=== PATIENT | female | born 1950 | race Caucasian/White ===

== ENCOUNTER 2022-04-09 11:42 | Observation (INO) | payer MEDICARE, OTHER ==
[~2022-04-09] VITALS: Ht 152.4 cm; Wt 75.2 kg
--- NOTE | 2022-04-09 11:54 | ED General ---
General Stated Complaint: COUGH; SOB History of Present Illness Date Seen by Provider: Apr 09, 2022 Time Seen by Provider: 11:49 Initial Comments 72-year-old female presents with some generalized weakness, shortness of breath, malaise, mild cough. No fevers chills nausea or vomiting. Symptoms started approximately 5 days ago when she went to [email or web address]. Patient denies chest pain, leg pain or any other systemic complaints. Patient went to urgent care where she was tested negative for COVID and influenza and sent over here for further evaluation. Allergies and Home Medications Allergies Coded Allergies: No Known Drug Allergies (Unverified , 04/09/22) Patient Home Medication List Home Medication List Reviewed: Yes Review of Systems Review of Systems Constitutional: No chills, No fever; malaise, weakness EENTM: no symptoms reported Respiratory: cough (Mild occasion), short of breath Cardiovascular: No chest pain, No palpitations Gastrointestinal: No abdominal pain, No diarrhea, No nausea, No vomiting Genitourinary: no symptoms reported Musculoskeletal: no symptoms reported Skin: no symptoms reported Psychiatric/Neurological: Weakness Physical Exam Vital Signs Vital Signs - First Documented 04/09/22 12:00 Temp 36.5 Pulse 125 Resp 25 B/P (MAP) 121/90 (100) O2 Delivery Room Air Capillary Refill : Height, Weight, BMI Height: '" Weight: lbs. oz. 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 Norm as Tested Skin: Normal Color, Warm/Dry Progress/Results/Core Measures Suspected Sepsis SIRS Temperature: Pulse: Respiratory Rate: Laboratory Tests 04/09/22 11:58: White Blood Count 9.8 Blood Pressure / Mean: Laboratory Tests 04/09/22 11:58: Creatinine 1.11, Platelet Count 235, Total Bilirubin 1.8H Results/Orders Lab Results Laboratory Tests Test 04/09/22 11:58 Range/Units White Blood Count 9.8 4.3-11.0 10^3/uL Red Blood Count 5.24 H 3.80-5.11 10^6/uL Hemoglobin 15.3 11.5-16.0 g/dL Hematocrit 46 35-52 % Mean Corpuscular Volume 87 80-99 fL Mean Corpuscular Hemoglobin 29 25-34 pg Mean Corpuscular Hemoglobin Concent 34 32-36 g/dL Red Cell Distribution Width 13.3 10.0-14.5 % Platelet Count 235 130-400 10^3/uL Mean Platelet Volume 11.0 9.0-12.2 fL Immature Granulocyte % (Auto) 0 % Neutrophils (%) (Auto) 73 42-75 % Lymphocytes (%) (Auto) 18 12-44 % Monocytes (%) (Auto) 6 0-12 % Eosinophils (%) (Auto) 1 0-10 % Basophils (%) (Auto) 1 0-10 % Neutrophils # (Auto) 7.2 1.8-7.8 10^3/uL Lymphocytes # (Auto) 1.8 1.0-4.0 10^3/uL Monocytes # (Auto) 0.6 0.0-1.0 10^3/uL Eosinophils # (Auto) 0.1 0.0-0.3 10^3/uL Basophils # (Auto) 0.1 0.0-0.1 10^3/uL Immature Granulocyte # (Auto) 0.0 0.0-0.1 10^3/uL D-Dimer 2.48 H 0.00-0.49 UG/ML Sodium Level 142 135-145 MMOL/L Potassium Level 4.0 3.6-5.0 MMOL/L Chloride Level 104 98-107 MMOL/L Carbon Dioxide Level 20 L 21-32 MMOL/L Anion Gap 18 H 5-14 MMOL/L Blood Urea Nitrogen 28 H 7-18 MG/DL Creatinine 1.11 0.60-1.30 MG/DL Estimat Glomerular Filtration Rate 52 BUN/Creatinine Ratio 25 Glucose Level 131 H 70-105 MG/DL Calcium Level 9.2 8.5-10.1 MG/DL Corrected Calcium 9.0 8.5-10.1 MG/DL Magnesium Level 2.0 1.6-2.4 MG/DL Total Bilirubin 1.8 H 0.1-1.0 MG/DL Aspartate Amino Transf (AST/SGOT) 24 5-34 U/L Alanine Aminotransferase (ALT/SGPT) 22 0-55 U/L Alkaline Phosphatase 68 40-136 U/L Troponin I < 0.30 <0.30 NG/ML C-Reactive Protein 1.05 H <0.50 MG/DL Pro-B-Type Natriuretic Peptide 80118.0 H <125.0 PG/ML Total Protein 7.3 6.4-8.2 GM/DL Albumin 4.3 3.2-4.5 GM/DL My Orders Orders - MUHAMMAD,JULIEN L DO Cbc With Automated Diff (04/09/22 11:54) Comprehensive Metabolic Panel (04/09/22 11:54) Magnesium (04/09/22 11:54) Procalcitonin (Pct) (04/09/22 11:54) Probnp Fs (04/09/22 11:54) Crp Fs (04/09/22 11:54) Troponin I Fs (04/09/22 11:54) Ed Iv/Invasive Line Start (04/09/22 11:54) Ekg Tracing (04/09/22 11:54) Monitor-Rhythm Ecg Trace Only (04/09/22 11:54) Fibrin Degradation Products (04/09/22 11:54) Chest Pa/Lat (2 View) (04/09/22 11:54) Lactated Ringers (Lr 1000 Ml Iv Solution (04/09/22 11:59) Ct Angio Chest W (04/09/22 12:50) Iohexol Injection (Omnipaque 350 Mg/Ml 1 (04/09/22 13:00) Received Contrast (Hold Metformin- Contr (04/09/22 13:00) Sodium Chloride Flush (Catheter Flush Sy (04/09/22 13:00) Ns (Ivpb) (Sodium Chloride 0.9% Ivpb Bag (04/09/22 13:00) Furosemide Injection (Lasix Injection) (04/10/22 09:00) Furosemide Injection (Lasix Injection) (04/09/22 13:48) Ed Admission (Communication) (04/09/22 13:58) Medications Given in ED Current Medications Medications Dose Ordered Sig/Sera Route Start Time Stop Time Status Last Admin Dose Admin Iohexol 75 ml ONCE ONCE IV 04/09/22 13:00 04/09/22 13:01 DC 04/09/22 13:19 100 ML Sodium Chloride 10 ml NEEDED PRN IV 04/09/22 13:00 04/09/22 13:19 10 ML Sodium Chloride 100 ml ONCE ONCE IV 04/09/22 13:00 04/09/22 13:01 DC 04/09/22 13:19 100 ML Vital Signs/I&O 04/09/22 12:00 Temp 36.5 Pulse 125 Resp 25 B/P (MAP) 121/90 (100) O2 Delivery Room Air Capillary Refill : Progress Note : Progress Note Patient with new onset CHF. She had a negative CTA for pulmonary embolism. Her CT is consistent with pulmonary edema and CHF. She does remain tachycardic despite oxygen treatment. Her O2 saturations were in low 90s and she was mildly tachypneic. We placed on oxygen which her O2 saturations improved to the upper 90s and her respiratory rate remained just mildly tachypneic however she did remain tachycardic. Patient to be admitted for further inpatient evaluation for observation to Dr. Gorman [facility]. She was stable upon transfer via [facility] ECG Initial ECG Impression Date: Apr 09, 2022 Initial ECG Impression Time: 11:59 Initial ECG Rate: 117 Initial ECG Rhythm: S.Tach, PVC Comment sinus tach, occasional pvc, lvh, left axis deviation. no acute changes Diagnostic Imaging Diagonstic Imaging: Xray Plain Films/CT/US/NM/MRI: chest Comments Date of Exam:04/09/22 CHEST PA/LAT (2 VIEW) CLINICAL INDICATION: Patient with cough and cold-like symptoms. EXAM: Chest x-ray PA and lateral views. COMPARISON: None. FINDINGS: Lungs/pleura: There are mild patchy airspace opacities involving both lung bases. There is no pneumothorax. There is no pleural effusion. Mediastinum: Unremarkable. Pulmonary vasculature: There is mild pulmonary vascular congestion. Heart: There is cardiomegaly. Bones/extrathoracic soft tissue: There are hypertrophic spurs involving the thoracic spine. There is left curvature of the lower thoracic spine. IMPRESSION: 1: There is cardiomegaly and pulmonary vascular congestion which could be seen with congestive heart failure. 2: There are mild patchy airspace opacities involving both lung bases which may represent pulmonary congestion, but lung infiltrates may also be considered. Departure Impression Primary Impression: Congestive heart failure Qualified Codes: I50.9 - Heart failure, unspecified Disposition: 30 STILL A PATIENT Condition: Stable Admissions Decision to Admit/Date: Apr 09, 2022 Time/Decision to Admit Time: 13:58 Departure-Patient Inst. Referrals: ROWAN GARCIA MD (PCP) Primary Care Physician JULIEN MUHAMMAD DO Apr 09, 2022 11:54
[2022-04-09] MEDS ORDERED: LACTATED RINGERS 1,000 ML IV STA (11:59)
[2022-04-09 12:08] LABS: BASOPHILS # (AUTO) 0.1 10^3/uL (0.0-0.1); BASOPHILS % (AUTO) 1 % (0-10); EOSINOPHILS # (AUTO) 0.1 10^3/uL (0.0-0.3); EOSINOPHILS % (AUTO) 1 % (0-10); HEMATOCRIT 46 % (35-52); HEMOGLOBIN 15.3 g/dL (11.5-16.0); LYMPHOCYTES # (AUTO) 1.8 10^3/uL (1.0-4.0); LYMPHOCYTES % (AUTO) 18 % (12-44); MEAN CORPUSCULAR HEMOGLOBIN 29 pg (25-34); MEAN CORPUSCULAR HGB CONC 34 g/dL (32-36); MEAN CORPUSCULAR VOLUME 87 fL (80-99); MONOCYTES # (AUTO) 0.6 10^3/uL (0.0-1.0); MONOCYTES % (AUTO) 6 % (0-12); NEUTROPHILS # (AUTO) 7.2 10^3/uL (1.8-7.8); NEUTROPHILS % (AUTO) 73 % (42-75); PLATELET COUNT 235 10^3/uL (130-400); WHITE BLOOD COUNT 9.8 10^3/uL (4.3-11.0)
--- NOTE | 2022-04-09 12:26 | Diagnostic Imaging Report ---
CLINICAL INDICATION: Patient with cough and cold-like symptoms. EXAM: Chest x-ray PA and lateral views. COMPARISON: None. FINDINGS: Lungs/pleura: There are mild patchy airspace opacities involving both lung bases. There is no pneumothorax. There is no pleural effusion. Mediastinum: Unremarkable. Pulmonary vasculature: There is mild pulmonary vascular congestion. Heart: There is cardiomegaly. Bones/extrathoracic soft tissue: There are hypertrophic spurs involving the thoracic spine. There is left curvature of the lower thoracic spine. IMPRESSION: 1: There is cardiomegaly and pulmonary vascular congestion which could be seen with congestive heart failure. 2: There are mild patchy airspace opacities involving both lung bases which may represent pulmonary congestion, but lung infiltrates may also be considered. Dictated by: Dictated on workstation # [id number]
[2022-04-09 12:41] LABS: ALANINE AMINOTRANSFERASE 22 U/L (0-55); ALKALINE PHOSPHATASE 68 U/L (40-136); BILIRUBIN,TOTAL 1.8 MG/DL (0.1-1.0); BUN/CREATININE RATIO 25; CALCIUM 9.2 MG/DL (8.5-10.1); CARBON DIOXIDE 20 MMOL/L (21-32); CHLORIDE 104 MMOL/L (98-107); CREATININE SERUM 1.11 MG/DL (0.60-1.30); GFR ESTIMATED 52; GLUCOSE 131 MG/DL (70-105); SODIUM 142 MMOL/L (135-145)
[2022-04-09 12:42] LABS: ALBUMIN 4.3 GM/DL (3.2-4.5); TOTAL PROTEIN 7.3 GM/DL (6.4-8.2)
[2022-04-09] MEDS ORDERED: HOLD METFORMIN - RECEIVED CONTRAST 20 ML VIAL IV SCH (13:00)
[2022-04-09] MEDS ORDERED: IOHEXOL 350 MG/ML 100 ML (OMNIPAQUE 350) VIAL IV ONE (13:00)
[2022-04-09] MEDS ORDERED: CATHETER FLUSH 10 ML SYR IV PRN (13:00)
[2022-04-09] MEDS ORDERED: NS 100 ML (IVPB) BAG IV ONE (13:00)
--- NOTE | 2022-04-09 13:34 | Diagnostic Imaging Report ---
PROCEDURE: CT angiography of the chest with contrast. TECHNIQUE: Multiple contiguous axial images were obtained through the chest after uneventful bolus administration of intravenous contrast. 3D reconstructed CTA MIP acquisitions were also performed. Auto Exposure Controls were utilized during the CT exam to meet ALARA standards for radiation dose reduction. INDICATION: Dyspnea and cough with elevated D-dimer. FINDINGS: There is good opacification of pulmonary arteries without intraluminal filling defect detected. There is cardiomegaly without enlargement of right atrium. There is mild left and [id number] right pleural effusion. There is diffuse ground-glass density likely representing pulmonary edema throughout the lungs. There is no significant pericardial effusion. Occasional mildly prominent mediastinal lymph nodes are noted. IMPRESSION: Findings are most suggestive of congestive heart failure with pleural fluid, greater on the right. There is no CTA evidence of pulmonary embolism or other definite acute abnormality in the thorax. Dictated by: Dictated on workstation # [id number]
[2022-04-09] MEDS ORDERED: FUROSEMIDE 40 MG/4 ML INJ (LASIX) ONE ×2 (13:48→21:26)
[2022-04-09 15:14] VITALS: BP 141/84
[2022-04-09] MEDS ORDERED: diphenhydrAMINE 50 MG/ML INJ (BENADRYL) IVP PRN (17:00)
[2022-04-09] MEDS ORDERED: ONDANSETRON 4 MG (ZOFRAN) ORAL DISSOLVE TAB PO PRN (17:00)
[2022-04-09] MEDS ORDERED: MELATONIN 3 MG TABLET PO PRN (17:00)
[2022-04-09] MEDS ORDERED: BISACODYL 10 MG SUPP (DULCOLAX) PR PRN (17:00)
[2022-04-09] MEDS ORDERED: morphine INJ 4 MG/ML 1 ML (VIAL/SYRINGE) IV PRN (17:00)
[2022-04-09] MEDS ORDERED: diphenhydrAMINE 25 MG TAB (BENADRYL) PO PRN (17:00)
[2022-04-09] MEDS ORDERED: ALPRAZolam 0.5 MG (XANAX) TAB PO PRN (17:00)
[2022-04-09] MEDS ORDERED: ONDANSETRON 4 MG/2 ML (SDV) Z0FRAN IV PRN (17:00)
[2022-04-09] MEDS ORDERED: polyethylene glycoL POWDER 17 GM (MIRALAX) PACK PO PRN (17:00)
[2022-04-09] MEDS ORDERED: ANTACID SUSP 30 ML UDC (MYLANTA) PO PRN (17:00)
[2022-04-09] MEDS ORDERED: ACETAMINOPHEN 325 MG TABLET PO PRN (17:00)
[2022-04-09] MEDS: ENOXAPARIN 40 MG/0.4 ML (LOVENOX) SYR SC SCH (17:56)
[2022-04-09 19:22] VITALS: BP 121/74
[2022-04-09] MEDS: DOCUSATE SODIUM 100 MG (COLACE) CAP PO SCH (21:00)
[2022-04-09] MEDS: FUROSEMIDE 40 MG/4 ML INJ (LASIX) IVP SCH (21:30)
[2022-04-09 23:03] VITALS: BP 121/90
[2022-04-10] VITALS (7 sets, daily range): BP systolic 97–126; BP diastolic 51–85
[2022-04-10 06:29] LABS: BASOPHILS # (AUTO) 0.1 10^3/uL (0.0-0.1); BASOPHILS % (AUTO) 1 % (0-10); EOSINOPHILS # (AUTO) 0.2 10^3/uL (0.0-0.3); EOSINOPHILS % (AUTO) 2 % (0-10); HEMATOCRIT 44 % (35-52); HEMOGLOBIN 14.3 g/dL (11.5-16.0); LYMPHOCYTES # (AUTO) 2.6 10^3/uL (1.0-4.0); LYMPHOCYTES % (AUTO) 26 % (12-44); MEAN CORPUSCULAR HEMOGLOBIN 29 pg (25-34); MEAN CORPUSCULAR HGB CONC 33 g/dL (32-36); MEAN CORPUSCULAR VOLUME 88 fL (80-99); MEAN PLATELET VOLUME 11.6 fL (9.0-12.2); MONOCYTES # (AUTO) 0.8 10^3/uL (0.0-1.0); MONOCYTES % (AUTO) 8 % (0-12); NEUTROPHILS # (AUTO) 6.2 10^3/uL (1.8-7.8); NEUTROPHILS % (AUTO) 63 % (42-75); PLATELET COUNT 209 10^3/uL (130-400); WHITE BLOOD COUNT 9.9 10^3/uL (4.3-11.0)
[2022-04-10 06:57] LABS: ALBUMIN 3.8 GM/DL (3.2-4.5); BILIRUBIN,TOTAL 1.9 MG/DL (0.1-1.0); CREATININE SERUM 1.05 MG/DL (0.60-1.30); TOTAL PROTEIN 6.8 GM/DL (6.4-8.2)
[2022-04-10] MEDS: FUROSEMIDE 40 MG/4 ML INJ (LASIX) IVP SCH (08:15)
[2022-04-10] MEDS: DOCUSATE SODIUM 100 MG (COLACE) CAP PO SCH ×2 (08:15→20:26)
[2022-04-10] MEDS ORDERED: FUROSEMIDE 40 MG/4 ML INJ (LASIX) IVP SCH ×2 (09:00)
[2022-04-10] MEDS ORDERED: LOVA10TA PO (10:17)
[2022-04-10] MEDS ORDERED: ACET-2267 PO (10:17)
[2022-04-10] MEDS ORDERED: TRAM50TA3 PO (10:17)
[2022-04-10] MEDS ORDERED: CITA40TA13 PO (10:17)
[2022-04-10] MEDS ORDERED: LEVO75TA6 PO (10:17)
[2022-04-10] MEDS ORDERED: OLAN10TA71 PO (10:17)
[2022-04-10] MEDS ORDERED: MELO15TA39 PO (10:17)
[2022-04-10] MEDS: RT-ALBUTEROL/IPRATROPIUM 3 ML (DUONEB) VIAL INH SCH ×2 (10:55→19:00)
--- NOTE | 2022-04-10 12:50 | History & Physical-Hospitalist ---
[facility] 04/10/22 1250: History of Present Illness HPI/Chief Complaint Amber is a 72 year old female who presented to the [place] ER on 04/09 with SOB and generalized weakness for the previous 5 days. She had negative flu and COVID tests at the urgent care on 04/09 before being seen in the ER. Her CT at [place] revealed pulmonary edema and CHF. She remained tachycardic despite oxygen treatment and was transferred to [place] where care was assumed by Dr. Logan. She is accompanied by her son. Today she notes having BRASHER but no resting SOB and she still has an occasional cough productive of clear sputum as well as generalized weakness. She has never had symptoms similar to this before. Pt tried acetaminophen for the discomfort which helped somewhat. Walking exacerbates her discomfort and SOB. She notes her trouble breathing is worse when Lasix treatment "wears off" but is improved once Lasix are restarted. Reports some mild nausea and stomach unease today that improves once she eats lunch. Her last BM was yesterday morning and she has been started on stool softeners. Denies CP, vomiting, diarrhea, fever, chills, abdominal pain, sore throat. [place] BNP was 57510. Echo today showed 25-30% LVEF. Cardiology has been consulted. Source: patient, EMS notes reviewed Exam Limitations: no limitations Date Seen 04/10/22 Time Seen by a Provider: 11:15 Attending Physician Saul Schultz MD PCP Admitting Physician: Braydon Logan DO Attending Physician: Braydon Logan DO Referring Physician Date of Admission Apr 09, 2022 at 16:40 Home Medications & Allergies Home Medications Reviewed patient Home Medication Reconciliation performed by pharmacy medication reconciliations mathematical technician and/or nursing. Patients Allergies have been reviewed. Allergies Allergies Coded Allergies No Known Drug Allergies ([id number]/1/22) Past [id number]-[id number]-Dscamd Hx Patient Social History Tobacco Use?: No Smoking Status: Never a Smoker Use of E-Cig and/or Vaping dev: No Substance use?: No Alcohol Use?: No Pt feels they are or have been: No Immunizations Up To Date Date of Influenza Vaccine: Mar 10, 2022 Current Status Advance Directives: No Communicates: Verbally Primary Language: Ukrainian Preferred Spoken Language: Ukrainian Is interpretation needed?: No Implanted or Applied Medical D: None Past Medical History Surgeries: Orthopedic (bilateral hip replacements) High Cholesterol Arthritis Hypothyroidsim Depression Family Medical History GI Disease (mother-hepatitis), Stroke (father) Review of Systems Constitutional: No chills, No diaphoresis; weakness EENTM: No vision loss, No throat pain Respiratory: cough (occasional), dyspnea on exertion; No hemoptysis; short of breath Cardiovascular: No chest pain, No palpitations Gastrointestinal: No abdominal pain, No diarrhea, No vomiting Genitourinary: No decreased output, No discharge Musculoskeletal: No back pain, No joint pain Skin: No change in color, No change in hair/nails Psychiatric/Neurological: Denies Anxiety; Depressed All Other Systems Reviewed Negative Unless Noted: Yes (Negative excepted noted.) Physical Exam Physical Exam Vital Signs Vital Signs - First Documented 04/09/22 04/09/22 04/09/22 12:00 15:14 23:03 Temp 36.5 Pulse 125 Resp 25 B/P (MAP) 121/90 (100) Pulse Ox 97 O2 Delivery Room Air O2 Flow Rate 3.00 FiO2 21 Capillary Refill : Height, Weight, BMI Height: '" Weight: lbs. oz. kg; 29.62 BMI Method: General Appearance: No Apparent Distress, WD/WN HEENT: PERRL/EOMI, Pharynx Normal, Moist Mucous Membranes Neck: Full Range of Motion, Normal Inspection, Non Tender, Supple Respiratory: Chest Non Tender, Lungs Clear, Normal Breath Sounds, No Accessory Muscle Use, No Respiratory Distress Cardiovascular: Regular Rate, Rhythm, No Gallop, No JVD, No Murmur, Normal Peripheral Pulses Gastrointestinal: Normal Bowel Sounds, Non Tender, Soft Rectal: Deferred Back: Normal Inspection, No CVA Tenderness Extremity: Normal Capillary Refill, Normal Inspection, Normal Range of Motion, Non Tender, No Calf Tenderness Neurologic/Psychiatric: Alert, Oriented x3, No Motor/Sensory Deficits, Normal Mood/Affect, veterinarian II-XII Norm as Tested Skin: Normal Color, Warm/Dry Lymphatic: No Adenopathy Results Results/Procedures Labs Laboratory Tests 04/09/22 11:58 04/10/22 05:27 Patient resulted labs reviewed. Imaging: Reviewed Imaging Report Assessment/Plan Admission Diagnosis Admission Status: Inpatient Order (span 2 midnights) Reason for Inpatient Admission: new onset CHF Assessment and Plan CHF - new onset Reduced LVEF Pulmonary edema HLD Depression Hypothyroid Continue Lasix treatment Nebulizer treatment as needed Will require cardiac catheterization given new onset on CHF with unknown CAD status Cardiology consulted and recommendations appreciated BRAYDON LOGAN DO 04/11/22 0624: Assessment/Plan Admission Diagnosis Assessment: New CHF Hypothyroidism OA Plan: Cardiology consult ECHO Admission Status: Observation Reason for Inpatient Admission: new Supervisory-Addendum Brief Verification & Attestation Participated in pt care: history, MDM, physical Personally performed: exam, history, MDM, supervision of care Care discussed with: Medical Student Procedures: n/a Results interpretation: Verified all documentation Verification and Attestation of Medical Student E/M Service A medical student performed and documented this service in my presence. I reviewed and verified all information documented by the medical student and made modifications to such information, when appropriate. I personally performed the physical exam and medical decision making. Braydon Logan, Apr 11, 2022,06:24 JORDAN DEVINE Apr 10, 2022 12:50 BRAYDON LOGAN DO Apr 11, 2022 06:24
--- NOTE | 2022-04-10 12:57 | Consultation-Cardiology ---
HPI-Cardiology Cardiology Consultation: Date of Consultation 04/10/22 Time Seen by a Provider: 12:15 Date of Admission 04-09-22 Attending Physician Saul Schultz MD Admitting Physician Admitting Physician: Jeniffer Gorman DO Attending Physician: Jeniffer Gorman DO Consulting Physician Bruno Montgomery MD HPI: Chief Complaint: New onset CHF Ms. Avitia is a 72 yr old female admitted to [facility] from the ED with increasing SOB and newly dx CHF. She reports over the course of the last several weeks she has had increasing BRASHER. She feels it started on Wednesday and progressively got worse throughout the week. Her family reports she has had increasing SOB since before . She denies any c/o CP, palpitations, syncope, near syncope or LE swelling. No c/o n/v/d. No c/o fever or chills. Review of Systems-Cardiology Review of Systems Constitutional: No chills, No fever; malaise Eyes: No vision change Ears/Nose/Throat: No epistaxis, No recent hearing loss Respiratory: As described under HPI Cardiovascular: As described under HPI Gastrointestinal: No constipation, No diarrhea, No nausea, No vomiting Genitourinary: No dysuria, No hematuria Musculoskeletal: back pain (chronic) Skin: No rash on exposed areas, No ulcerations on exposed areas Psychiatric/Neurological: depression; No focal weakness, No syncope Hematologic: No bleeding abnormalities GMZ-Cvquhg-Sldduj Hx Patient Social History Smoking Status: Never a Smoker Have you traveled recently?: No Alcohol Use?: No Pt feels they are or have been: No Immunizations Up To Date Date of Influenza Vaccine: Mar 10, 2022 Past Medical History PMH As described under Assessment. Family Medical History Family Medical History: She reports he father had a stroke. Allergies and Home Medications Allergies Coded Allergies: No Known Drug Allergies (Unverified , 04/09/22) Patient Home Medication List Acetaminophen (Tylenol Extra Strength) 500 Mg Tablet, 500-1,000 MG PO Q8H PRN for PAIN-MILD (1-4), (Reported) Entered as Reported by: PRIYANKA HILL on 04/10/22 1017 Last Action: Held Citalopram Hydrobromide (Citalopram HBr) 40 Mg Tablet, 20 MG PO HS, (Reported) Entered as Reported by: PRIYANKA HILL on 04/10/221016 Last Action: Converted Levothyroxine Sodium (Levothyroxine Sodium) 75 Mcg Tablet, 75 MCG PO DAILY, (Reported) Entered as Reported by: PRIYANKA HILL on 04/10/221016 Last Action: Continued Lovastatin (Lovastatin) 10 Mg Tablet, 10 MG PO HS, (Reported) Entered as Reported by: PRIYANKA HILL on 04/10/221016 Last Action: Converted Meloxicam (Meloxicam) 15 Mg Tablet, 15 MG PO DAILY, (Reported) Entered as Reported by: PRIYANKA HILL on 04/10/221016 Last Action: Converted Olanzapine (Olanzapine) 10 Mg Tablet, 5 MG PO HS, (Reported) Entered as Reported by: PRIYANKA HILL on 04/10/221016 Last Action: Converted Tramadol HCl (Tramadol HCl) 50 Mg Tablet, 50 MG PO Q6H PRN for PAIN-MODERATE (5- 7), (Reported) Entered as Reported by: PRIYANKA HILL on 04/10/221016 Last Action: Continued Physical Exam-Cardiology Physical Exam Vital Signs/I&O 04/12/22 04/13/22 04/13/22 04/13/22 23:14 01:00 03:54 06:47 Temp 37.2 36.8 Pulse 100 90 94 136 Resp 18 18 B/P (MAP) 102/57 (72) 98/68 (78) Pulse Ox 96 95 O2 Delivery Nasal Cannula Nasal Cannula O2 Flow Rate 1.00 1.00 04/13/22 04/13/22 04/13/22 04/13/22 07:08 07:09 07:30 07:49 Pulse 84 133 125 120 04/13/22 04/13/22 04/13/22 08:00 08:30 08:31 Temp 36.8 Pulse 122 Resp 16 B/P (MAP) Pulse Ox 98 O2 Delivery Nasal Cannula Nasal Cannula Nasal Cannula O2 Flow Rate 1.00 1.00 1.00 04/13/22 00:00 Intake Total 460 ml Output Total 200 ml Balance 260 ml Capillary Refill : Constitutional: AAO x 3, well-developed, well-nourished HEENT: PERRL, hearing is well preserved, oral hygience is good Neck: No carotid bruit; carotid pulses are 2 + bilaterally Respiratory: No accessory muscle use, No respiratory distress; chest expansion is symmetric, chest is bilaterally symmetric, other (diminished lower lobes bilat) Cardiovascular: regular rate-rhythm, systolic murmur Gastrointestinal: No tender; soft, round, audible bowel sounds Extremities: no lower extremity edema bilateral Neurologic/Psychiatric: grossly intact (moves all extremities) Skin: No rash on exposed areas, No ulcerations on exposed areas Data Review Labs Laboratory Tests 04/13/22 05:40: White Blood Count 6.0, Red Blood Count 4.46, Hemoglobin 12.9, Hematocrit 40, Mean Corpuscular Volume 91, Mean Corpuscular Hemoglobin 29, Mean Corpuscular Hemoglobin Concent 32, Red Cell Distribution Width 13.4, Platelet Count 189, Mean Platelet Volume 11.2, Immature Granulocyte % (Auto) 0, Neutrophils (%) (Auto) 52, Lymphocytes (%) (Auto) 33, Monocytes (%) (Auto) 8, Eosinophils (%) (Auto) 6, Basophils (%) (Auto) 1, Neutrophils # (Auto) 3.2, Lymphocytes # (Auto) 2.0, Monocytes # (Auto) 0.5, Eosinophils # (Auto) 0.3, Basophils # (Auto) 0.1, Immature Granulocyte # (Auto) 0.0, Sodium Level 142, Potassium Level 4.0, Chloride Level 113H, Carbon Dioxide Level 21, Anion Gap 8, Blood Urea Nitrogen 25H, Creatinine 0.86, Estimat Glomerular Filtration Rate 71, BUN/Creatinine Ratio 29, Glucose Level 96, Calcium Level 8.8, Corrected Calcium 9.3, Total Bilirubin 1.2H, Aspartate Amino Transf (AST/SGOT) 18, Alanine Aminotransferase (ALT/SGPT) 28, Alkaline Phosphatase 50, Total Protein 5.9L, Albumin 3.4 Radiology NAME: JESENIA AVITIA [facility] REC#: [id number] PT STATUS: ADM [place] : 1950 PHYSICIAN: JULIEN MUHAMMAD DO ADMIT DATE: 04/09/22 Signed Date of Exam:04/09/22 CHEST PA/LAT (2 VIEW) CLINICAL INDICATION: Patient with cough and cold-like symptoms. EXAM: Chest x-ray PA and lateral views. COMPARISON: None. FINDINGS: Lungs/pleura: There are mild patchy airspace opacities involving both lung bases. There is no pneumothorax. There is no pleural effusion. Mediastinum: Unremarkable. Pulmonary vasculature: There is mild pulmonary vascular congestion. Heart: There is cardiomegaly. Bones/extrathoracic soft tissue: There are hypertrophic spurs involving the thoracic spine. There is left curvature of the lower thoracic spine. IMPRESSION: 1: There is cardiomegaly and pulmonary vascular congestion which could be seen with congestive heart failure. 2: There are mild patchy airspace opacities involving both lung bases which may represent pulmonary congestion, but lung infiltrates may also be considered. Dictated by: Dictated on workstation # [id number] Dict: 04/09/22 1219 Trans: 04/09/22 170 [facility] [id number] Interpreted by: ANDREW BOYCE MD Electronically signed by: ANDREW BOYCE MD 04/09/221703 NAME: JESENIA AVITIA [facility] REC#: [id number] PT STATUS: ADM [place] : 1950 PHYSICIAN: JULIEN MUHAMMAD DO ADMIT DATE: 04/09/22 Signed Date of Exam:04/09/22 CT ANGIO CHEST W PROCEDURE: CT angiography of the chest with contrast. TECHNIQUE: Multiple contiguous axial images were obtained through the chest after uneventful bolus administration of intravenous contrast. 3D reconstructed CTA MIP acquisitions were also performed. Auto Exposure Controls were utilized during the CT exam to meet ALARA standards for radiation dose reduction. INDICATION: Dyspnea and cough with elevated D-dimer. FINDINGS: There is good opacification of pulmonary arteries without intraluminal filling defect detected. There is cardiomegaly without enlargement of right atrium. There is mild left and [id number]-[id number] right pleural effusion. There is diffuse ground-glass density likely representing pulmonary edema throughout the lungs. There is no significant pericardial effusion. Occasional mildly prominent mediastinal lymph nodes are noted. IMPRESSION: Findings are most suggestive of congestive heart failure with pleural fluid, greater on the right. There is no CTA evidence of pulmonary embolism or other definite acute abnormality in the thorax. Dictated by: Dictated on workstation # [id number] Dict: 04/09/22 1326 Trans: 04/09/22 1840 [id number] Interpreted by: JUAN ÁLVAREZ MD Electronically signed by: JUAN ÁLVAREZ MD 04/09/22 1840 ECG Impression ECG Initial ECG Rhythm: S.Tach A/P-Cardiology Assessment/Admission Diagnosis Newly diagnosed systolic/diastolic CHF Dilated cardiomyopathy - Echocardiogram fo 04-09-22 showed mild concentric hypertrophy. LVEF 25-30%. Mod diffuse hypokinesis. Grade 3 diastolic dysfunction. LA and RA are mildly dilated. Mod to severe MR. Small right pleural effusion. PASP 50-55 mmHg Pulmonary HTN - suspected sleep apnea HLD Hypothyroidism Depression Chronic arthritis and back pain Discussion and Recomendations Newly diagnosed systolic/diastolic CHF with dilated cardiomyopathy - treat with Coreg, Lisinopril, Aldactone, Jardiance, Lasix as tolerated Pulmonary HTN - suspected sleep apnea - advise out pt sleep studies Keep on tele Monitor lab closely Further recs will be based on her hospital course I have discussed all of the above in detail with pt and family ASA JUAREZ Apr 10, 2022 12:57
[2022-04-10] MEDS ORDERED: EMPAGLIFLOZIN 10 MG TABLET (JARDIANCE) PO NR (13:30)
[2022-04-10] MEDS ORDERED: SPIRONOLACTONE 25 MG (ALDACTONE) TAB PO NR (13:30)
[2022-04-10] MEDS ORDERED: lisINopril 5 MG (PRINIVIL) TABLET PO NR (13:30)
[2022-04-10] MEDS ORDERED: PATIENT MAY USE OWN MED,SINGLE MED PO SCH (15:30)
--- NOTE | 2022-04-10 15:46 | Consultation-Cardiology ---
HPI-Cardiology Cardiology Consultation: Date of Consultation 04/10/22 Time Seen by a Provider: 15:15 Date of Admission Attending Physician Saul Schultz MD Admitting Physician Admitting Physician: Jeniffer Gorman DO Attending Physician: Jeniffer Gorman DO Consulting Physician ARACELI PRICE MD, MA, FACP, FACC, FSCAI, CCDS Physician requesting consult: Dr Gorman HPI: Chief Complaint: Reason for Card consult: New onset CHF Ms. Avitia is a 72 yr old female admitted to [facility] from the ED with increasing SOB and newly dx CHF. She reports over the course of the last several weeks she has had increasing BRASHER. She feels it started on Wednesday and progressively got worse throughout the week. Her family reports she has had increasing SOB since before . She denies any c/o CP, palpitations, syncope, near syncope or LE swelling. No c/o n/v/d. No c/o fever or chills. Review of Systems-Cardiology Review of Systems Constitutional: No chills, No fever; malaise Eyes: No vision change Ears/Nose/Throat: No epistaxis, No recent hearing loss Respiratory: As described under HPI Cardiovascular: As described under HPI Gastrointestinal: No constipation, No diarrhea, No nausea, No vomiting Genitourinary: No dysuria, No hematuria Musculoskeletal: back pain (chronic) Skin: No rash on exposed areas, No ulcerations on exposed areas Psychiatric/Neurological: depression; No focal weakness, No syncope Hematologic: No bleeding abnormalities All Other Systems Reviewed Negative Unless Noted: Yes (Negative excepted noted.) SKV-Grvgyt-Hcklzo Hx Patient Social History Smoking Status: Never a Smoker Have you traveled recently?: No Alcohol Use?: No Pt feels they are or have been: No Immunizations Up To Date Date of Influenza Vaccine: Mar 10, 2022 Past Medical History PMH As described under Assessment. Family Medical History Family Medical History: She reports he father had a stroke. Allergies and Home Medications Allergies Coded Allergies: No Known Drug Allergies (Unverified , 04/09/22) Patient Home Medication List Home Medication List Reviewed: Yes Acetaminophen (Tylenol Extra Strength) 500 Mg Tablet, 500-1,000 MG PO Q8H PRN for PAIN-MILD (1-4), (Reported) Entered as Reported by: PRIYANKA HILL on 12/2/22 1017 Last Action: Held Citalopram Hydrobromide (Citalopram HBr) 40 Mg Tablet, 20 MG PO HS, (Reported) Entered as Reported by: PRIYANKA HILL on 04/10/221016 Last Action: Converted Levothyroxine Sodium (Levothyroxine Sodium) 75 Mcg Tablet, 75 MCG PO DAILY, (Reported) Entered as Reported by: PRIYANKA HILL on 04/10/221016 Last Action: Continued Lovastatin (Lovastatin) 10 Mg Tablet, 10 MG PO HS, (Reported) Entered as Reported by: PRIYANKA HILL on 04/10/221016 Last Action: Converted Meloxicam (Meloxicam) 15 Mg Tablet, 15 MG PO DAILY, (Reported) Entered as Reported by: PRIYANKA HILL on 04/10/221016 Last Action: Converted Olanzapine (Olanzapine) 10 Mg Tablet, 5 MG PO HS, (Reported) Entered as Reported by: PRIYANKA HILL on 04/10/221016 Last Action: Converted Tramadol HCl (Tramadol HCl) 50 Mg Tablet, 50 MG PO Q6H PRN for PAIN-MODERATE (5- 7), (Reported) Entered as Reported by: PRIYANKA HILL on 04/10/221016 Last Action: Continued Physical Exam-Cardiology Physical Exam Vital Signs/I&O 04/10/22 04/10/22 04/10/22 04/10/22 04:10 07:00 08:00 08:08 Temp 36.7 36.4 Pulse 106 113 137 Resp 20 19 B/P (MAP) 122/85 (97) 126/74 (91) Pulse Ox 96 96 93 O2 Delivery Nasal Cannula Nasal Cannula Nasal Cannula O2 Flow Rate 3.00 3.50 3.50 04/10/22 04/10/22 04/10/22 10:11 12:59 13:00 Temp 37.0 Pulse 90 103 105 Resp 19 B/P (MAP) 120/80 (93) Pulse Ox 95 95 O2 Delivery Nasal Cannula O2 Flow Rate 3.00 04/10/22 00:00 Intake Total 1200 ml Balance 1200 ml Capillary Refill : Constitutional: AAO x 3, well-developed, well-nourished HEENT: PERRL, hearing is well preserved, oral hygience is good Neck: No carotid bruit; carotid pulses are 2 + bilaterally Respiratory: No accessory muscle use, No respiratory distress; chest expansion is symmetric, chest is bilaterally symmetric, other (diminished lower lobes bilat) Cardiovascular: regular rate-rhythm, systolic murmur Gastrointestinal: No tender; soft, round, audible bowel sounds Extremities: no lower extremity edema bilateral Neurologic/Psychiatric: grossly intact (moves all extremities) Skin: No rash on exposed areas, No ulcerations on exposed areas Data Review Labs Laboratory Tests 04/10/22 05:27: White Blood Count 9.9, Red Blood Count 5.00, Hemoglobin 14.3, Hematocrit 44, Mean Corpuscular Volume 88, Mean Corpuscular Hemoglobin 29, Mean Corpuscular Hemoglobin Concent 33, Red Cell Distribution Width 13.3, Platelet Count 209, Mean Platelet Volume 11.6, Immature Granulocyte % (Auto) 0, Neutrophils (%) (Auto) 63, Lymphocytes (%) (Auto) 26, Monocytes (%) (Auto) 8, Eosinophils (%) (Auto) 2, Basophils (%) (Auto) 1, Neutrophils # (Auto) 6.2, Lymphocytes # (Auto) 2.6, Monocytes # (Auto) 0.8, Eosinophils # (Auto) 0.2, Basophils # (Auto) 0.1, Immature Granulocyte # (Auto) 0.0, Sodium Level 142, Potassium Level 4.0, Chloride Level 108H, Carbon Dioxide Level 18L, Anion Gap 16H, Blood Urea Nitrogen 21H, Creatinine 1.05, Estimat Glomerular Filtration Rate 56, BUN/Creatinine Ratio 20, Glucose Level 101, Calcium Level 9.0, Corrected Calcium 9.2, Total Bilirubin 1.9H, Aspartate Amino Transf (AST/SGOT) 36H, Alanine Aminotransferase (ALT/SGPT) 50, Alkaline Phosphatase 62, Total Protein 6.8, A lbumin 3.8, Thyroid Stimulating Hormone (TSH) 5.06H A/P-Cardiology Assessment/Admission Diagnosis Newly diagnosed systolic and diastolic CHF Dilated cardiomyopathy - Echocardiogram fo 04-09-22 showed mild concentric hypertrophy. LVEF 25-30%. Mod diffuse hypokinesis. Grade 3 diastolic dysfunction. LA and RA are mildly dilated. Mod to severe MR. Small right pleural effusion. PASP 50-55 mmHg Pulmonary HTN - suspected sleep apnea HLD Hypothyroidism Depression Chronic arthritis and back pain Discussion and Recomendations Newly diagnosed systolic/diastolic CHF with dilated cardiomyopathy - treat with Coreg, Lisinopril, Aldactone, Jardiance, Lasix as tolerated Pulmonary HTN - suspected sleep apnea - advise out pt sleep studies Keep on tele Monitor lab closely Further recs will be based on her hospital course I have discussed all of the above in detail with pt and family ARACELI PRICE MD [facility] CCDS Apr 10, 2022 15:46
[2022-04-10] MEDS ORDERED: ASPIRIN 81 MG CHEW (CHILDREN'S ASA) PO NR (16:00)
[2022-04-10] MEDS: ENOXAPARIN 40 MG/0.4 ML (LOVENOX) SYR SC SCH (16:20)
[2022-04-10] MEDS: [UNRECOGNIZED DRUG - REMARK] PO SCH (20:24)
[2022-04-10] MEDS: OLANZapine 2.5 MG (ZyPREXA) TAB PO SCH (20:25)
[2022-04-10] MEDS ORDERED: AtorvaSTATin TABLET 10 MG TABLET PO SCH (21:00)
[2022-04-11 03:35] VITALS: BP 94/65
[2022-04-11 06:32] LABS: MEAN PLATELET VOLUME 11.5 fL (9.0-12.2)
[2022-04-11 06:34] LABS: BASOPHILS # (AUTO) 0.1 10^3/uL (0.0-0.1); BASOPHILS % (AUTO) 1 % (0-10); EOSINOPHILS # (AUTO) 0.5 10^3/uL (0.0-0.3); EOSINOPHILS % (AUTO) 6 % (0-10); HEMATOCRIT 45 % (35-52); HEMOGLOBIN 14.4 g/dL (11.5-16.0); LYMPHOCYTES # (AUTO) 2.6 10^3/uL (1.0-4.0); LYMPHOCYTES % (AUTO) 36 % (12-44); MEAN CORPUSCULAR HEMOGLOBIN 29 pg (25-34); MEAN CORPUSCULAR HGB CONC 32 g/dL (32-36); MEAN CORPUSCULAR VOLUME 90 fL (80-99); MONOCYTES # (AUTO) 0.6 10^3/uL (0.0-1.0); MONOCYTES % (AUTO) 8 % (0-12); NEUTROPHILS # (AUTO) 3.5 10^3/uL (1.8-7.8); NEUTROPHILS % (AUTO) 48 % (42-75); PLATELET COUNT 167 10^3/uL (130-400); WHITE BLOOD COUNT 7.3 10^3/uL (4.3-11.0)
--- NOTE | 2022-04-11 06:41 | Progress Note - Hospitalist ---
Subjective HPI/CC On Admission Date Seen by Provider: Apr 11, 2022 Time Seen by Provider: 11:00 Amber is a 72 year old female who presented to the [facility] ER on 04/09 with SOB and generalized weakness for the previous 5 days. She had negative flu and COVID tests at the urgent care on 04/09 before being seen in the ER. Her CT at [facility] revealed pulmonary edema and CHF. She remained tachycardic despite oxygen treatment and was transferred to [place] where care was assumed by Dr. Gorman. She is accompanied by her son. Today she notes having BRASHER but no resting SOB and she still has an occasional cough productive of clear sputum as well as generalized weakness. She has never had symptoms similar to this before. Pt tried acetaminophen for the discomfort which helped somewhat. Walking exacerbates her discomfort and SOB. She notes her trouble breathing is worse when Lasix treatment "wears off" but is improved once Lasix are restarted. Reports some mild nausea and stomach unease today that improves once she eats lunch. Her last BM was yesterday morning and she has been started on stool softeners. Denies CP, vomiting, diarrhea, fever, chills, abdominal pain, sore throat. [place] BNP was 46623. Echo today showed 25-30% LVEF. Cardiology has been consulted. Subjective/Events-last exam Patient doing a lot better Hypertension required holding Lasix and other meds Daughter at bedside Appreciate cardiology Review of Systems General: Fatigue, Malaise Objective Exam Vital Signs Vital Signs Date Time Temp Pulse Resp B/P (MAP) Pulse Ox O2 Delivery O2 Flow Rate FiO2 04/12/22 03:46 36.2 98 18 104/70 (81) 92 Room Air 04/11/22 23:27 0.50 04/09/22 23:03 21 Capillary Refill : General Appearance: No Apparent Distress, WD/WN, Chronically ill Respiratory: Lungs Clear, Normal Breath Sounds Cardiovascular: Regular Rate, Rhythm Neurologic/Psychiatric: Alert, Oriented x3, No Motor/Sensory Deficits, Normal Mood/Affect Results/Procedures Lab Laboratory Tests 04/11/22 06:08 Patient resulted labs reviewed. Imaging: Reviewed Imaging Report Assessment/Plan Assessment and Plan Assess & Plan/Chief Complaint CHF - new onset Reduced LVEF at 25% Pulmonary edema HLD Depression Hypothyroidism Continue Lasix treatment Nebulizer treatment as needed Will require cardiac catheterization or stress testing given new onset on CHF with unknown CAD status Cardiology consulted and recommendations appreciated Increase thyroid dose to 88 mcg BRAYDON GORMAN DO Apr 11, 2022 06:41
[2022-04-11 07:03] LABS: ALBUMIN 3.6 GM/DL (3.2-4.5); BILIRUBIN,TOTAL 1.3 MG/DL (0.1-1.0); CALCIUM 9.1 MG/DL (8.5-10.1); CREATININE SERUM 1.23 MG/DL (0.60-1.30); MAGNESIUM 2.2 MG/DL (1.6-2.4); TOTAL PROTEIN 6.6 GM/DL (6.4-8.2)
[2022-04-11 07:45] VITALS: BP 89/54
[2022-04-11] MEDS: MELOXICAM 7.5 MG (MOBIC) TABLET PO SCH (08:08)
[2022-04-11] MEDS: ASPIRIN 81 MG CHEW (CHILDREN'S ASA) PO SCH (08:08)
[2022-04-11] MEDS: FUROSEMIDE 40 MG/4 ML INJ (LASIX) IVP SCH (08:26)
[2022-04-11] MEDS: SPIRONOLACTONE 25 MG (ALDACTONE) TAB PO SCH (08:27)
[2022-04-11] MEDS: DOCUSATE SODIUM 100 MG (COLACE) CAP PO SCH ×2 (08:27→19:55)
[2022-04-11] MEDS: EMPAGLIFLOZIN 10 MG TABLET (JARDIANCE) PO SCH (08:27)
[2022-04-11] MEDS: RT-ALBUTEROL/IPRATROPIUM 3 ML (DUONEB) VIAL INH SCH ×2 (08:35→20:15)
[2022-04-11] MEDS ORDERED: lisINopril 5 MG (PRINIVIL) TABLET PO SCH (09:00)
[2022-04-11] MEDS ORDERED: LEVOTHYROXINE 75 MCG (LEVOTHROID) TABLET PO SCH (09:00)
[2022-04-11 11:41] VITALS: BP 105/68
--- NOTE | 2022-04-11 12:56 | Progress Note - Cardiology ---
Cardiology SOAP Progress Note Subjective: Notes gen malaise and nonspecific body discomfort No focal weakness No cp or palp or syncope No swelling No n/v/d Objective: I&O/Vital Signs 04/11/22 04/11/22 04/11/22 04/11/22 01:00 03:35 07:00 07:45 Temp 36.5 37.4 Pulse 85 87 90 89 Resp 20 20 B/P (MAP) 94/65 (75) 89/54 (66) Pulse Ox 95 99 O2 Delivery Nasal Cannula Nasal Cannula O2 Flow Rate 3.50 4.00 04/11/22 04/11/22 04/11/22 04/11/22 08:19 08:35 08:37 11:41 Temp 36.8 Pulse 99 Resp 20 B/P (MAP) 105/68 (80) Pulse Ox 89 97 93 O2 Delivery Nasal Cannula Nasal Cannula Nasal Cannula Nasal Cannula O2 Flow Rate 3.00 1.00 0.50 04/11/22 12:44 Pulse 113 04/11/22 00:00 Intake Total 970 ml Output Total 1650 ml Balance -680 ml Constitutional: AAO x 3, well-developed, well-nourished Respiratory: No accessory muscle use, No respiratory distress; chest expansion is symmetric, chest is bilaterally symmetric, other (diminished lower lobes bilat) Cardiovascular: regular rate-rhythm, systolic murmur Gastrointestional: No tender; soft, round, audible bowel sounds Extremities: no lower extremity edema bilateral Neurologic/Psychiatric: grossly intact (moves all extremities) Skin: No rash on exposed areas, No ulcerations on exposed areas Results/Procedures: Labs Laboratory Tests 04/11/22 06:08: White Blood Count 7.3, Red Blood Count 4.93, Hemoglobin 14.4, Hematocrit 45, Mean Corpuscular Volume 90, Mean Corpuscular Hemoglobin 29, Mean Corpuscular Hemoglobin Concent 32, Red Cell Distribution Width 13.3, Platelet Count 167, Mean Platelet Volume 11.5, Immature Granulocyte % (Auto) 0, Neutrophils (%) (Auto) 48, Lymphocytes (%) (Auto) 36, Monocytes (%) (Auto) 8, Eosinophils (%) (Auto) 6, Basophils (%) (Auto) 1, Neutrophils # (Auto) 3.5, Lymphocytes # (Auto) 2.6, Monocytes # (Auto) 0.6, Eosinophils # (Auto) 0.5H, Basophils # (Auto) 0.1, Immature Granulocyte # (Auto) 0.0, Percent Immature Platelet Fraction 6.6, Sodium Level 142, Potassium Level 4.0, Chloride Level 106, Carbon Dioxide Level 23, Anion Gap 13, Blood Urea Nitrogen 26H, Creatinine 1.23, Estimat Glomerular Filtration Rate 46, BUN/Creatinine Ratio 21, Glucose Level 89, Calcium Level 9.1, Corrected Calcium 9.4, Magnesium Level 2.2, Total Bilirubin 1.3H, Aspartate Amino Transf (AST/SGOT) 31, Alanine Aminotransferase (ALT/SGPT) 40, Alkaline Phosphatase 57, Total Protein 6.6, Albumin 3.6 Laboratory Tests 04/10/22 05:27 04/11/22 06:08 A/P: Assessment: Newly diagnosed systolic and diastolic CHF Dilated cardiomyopathy - Echocardiogram fo 04-09-22 showed mild concentric hypertrophy. LVEF 25-30%. Mod diffuse hypokinesis. Grade 3 diastolic dysfunction. LA and RA are mildly dilated. Mod to severe MR. Small right pleural effusion. PASP 50-55 mmHg Pulmonary HTN - suspected sleep apnea HLD Hypothyroidism Depression Chronic arthritis and back pain CKD 2-3, probably with an acute component of prerenal azotemia due to diuretic therapy Plan: * Reduce lisinopril due to somewhat low bp * Reduce diuretic because now appears to have a component of pre-renal azotemia due to diuretic therapy * Monitor labs * Card cath recommended to eval for CAD as the cause of dilated cardiomyopathy * I had a long and detailed discussion with her, one of her daughters, and one of her grandsons (a pharmacist who was on the phone) regarding her diagnoses * I reviewed the rationale, procedure, risks, benefits, potential complications, and alternative of card cath and possible ad hoc cor intervention with her. Questions answered in detail. She understands and wishes to proceed. Will schedule for tomorrow * Monitor labs ARACELI PRICE MD [facility] CCDS Apr 11, 2022 12:56
[2022-04-11 16:30] VITALS: BP 113/74
[2022-04-11] MEDS: ENOXAPARIN 40 MG/0.4 ML (LOVENOX) SYR SC SCH (18:00)
[2022-04-11 19:11] VITALS: BP 101/58
[2022-04-11] MEDS: OLANZapine 2.5 MG (ZyPREXA) TAB PO SCH (19:54)
[2022-04-11] MEDS: [UNRECOGNIZED DRUG - REMARK] PO SCH (19:55)
[2022-04-11 23:27] VITALS: BP 103/58
[2022-04-12] VITALS (10 sets, daily range): BP systolic 102–130; BP diastolic 57–76
--- NOTE | 2022-04-12 06:07 | Progress Note - Hospitalist ---
Subjective HPI/CC On Admission Date Seen by Provider: Apr 12, 2022 Time Seen by Provider: 11:30 Amber is a 72 year old female who presented to the [facility] ER on 04/09 with SOB and generalized weakness for the previous 5 days. She had negative flu and COVID tests at the urgent care on 04/09 before being seen in the ER. Her CT at [facility] revealed pulmonary edema and CHF. She remained tachycardic despite oxygen treatment and was transferred to [facility] where care was assumed by Dr. Gorman. She is accompanied by her son. Today she notes having BRASHER but no resting SOB and she still has an occasional cough productive of clear sputum as well as generalized weakness. She has never had symptoms similar to this before. Pt tried acetaminophen for the discomfort which helped somewhat. Walking exacerbates her discomfort and SOB. She notes her trouble breathing is worse when Lasix treatment "wears off" but is improved once Lasix are restarted. Reports some mild nausea and stomach unease today that improves once she eats lunch. Her last BM was yesterday morning and she has been started on stool softeners. Denies CP, vomiting, diarrhea, fever, chills, abdominal pain, sore throat. [place] 45067. Echo today showed 25-30% LVEF. Cardiology has been consulted. Subjective/Events-last exam Cath today revealed no obstructive disease BP improved Review of Systems General: Fatigue, Malaise Pulmonary: Dyspnea Objective Exam Vital Signs Vital Signs Date Time Temp Pulse Resp B/P (MAP) Pulse Ox O2 Delivery O2 Flow Rate FiO2 04/12/22 16:03 36.5 116 20 117/71 (86) 92 Nasal Cannula 2.00 04/09/22 23:03 21 Capillary Refill : General Appearance: No Apparent Distress, WD/WN, Chronically ill Respiratory: Lungs Clear, Normal Breath Sounds Cardiovascular: Regular Rate, Rhythm Neurologic/Psychiatric: Alert, Oriented x3, No Motor/Sensory Deficits, Normal Mood/Affect Results/Procedures Lab Laboratory Tests 04/12/22 05:11 Patient resulted labs reviewed. Imaging: Reviewed Imaging Report Assessment/Plan Assessment and Plan Assess & Plan/Chief Complaint CHF - new onset Reduced LVEF at 25% Pulmonary edema HLD Depression Hypothyroidism Continue Lasix treatment Nebulizer treatment as needed Will require cardiac catheterization or stress testing given new onset on CHF with unknown CAD status Cardiology consulted and recommendations appreciated Increase thyroid dose to 88 mcg BRAYDON GORMAN DO Apr 12, 2022 06:07
[2022-04-12] MEDS: LEVOTHYROXINE 88 MCG (LEVOTHORID) TAB PO SCH (06:08)
[2022-04-12 07:00] LABS: BASOPHILS # (AUTO) 0.1 10^3/uL (0.0-0.1); BASOPHILS % (AUTO) 1 % (0-10); EOSINOPHILS # (AUTO) 0.5 10^3/uL (0.0-0.3); EOSINOPHILS % (AUTO) 8 % (0-10); HEMATOCRIT 43 % (35-52); HEMOGLOBIN 13.7 g/dL (11.5-16.0); LYMPHOCYTES # (AUTO) 2.4 10^3/uL (1.0-4.0); LYMPHOCYTES % (AUTO) 36 % (12-44); MEAN CORPUSCULAR HEMOGLOBIN 29 pg (25-34); MEAN CORPUSCULAR HGB CONC 32 g/dL (32-36); MEAN CORPUSCULAR VOLUME 91 fL (80-99); MEAN PLATELET VOLUME 11.8 fL (9.0-12.2); MONOCYTES # (AUTO) 0.4 10^3/uL (0.0-1.0); MONOCYTES % (AUTO) 7 % (0-12); NEUTROPHILS # (AUTO) 3.1 10^3/uL (1.8-7.8); NEUTROPHILS % (AUTO) 48 % (42-75); PLATELET COUNT 197 10^3/uL (130-400); WHITE BLOOD COUNT 6.5 10^3/uL (4.3-11.0)
[2022-04-12 07:22] LABS: ALBUMIN 3.5 GM/DL (3.2-4.5); BILIRUBIN,TOTAL 1.2 MG/DL (0.1-1.0); CALCIUM 9.1 MG/DL (8.5-10.1); CREATININE SERUM 1.05 MG/DL (0.60-1.30); POTASSIUM 3.7 MMOL/L (3.6-5.0); TOTAL PROTEIN 6.3 GM/DL (6.4-8.2)
[2022-04-12] MEDS: DOCUSATE SODIUM 100 MG (COLACE) CAP PO SCH ×2 (08:25→20:12)
[2022-04-12] MEDS: EMPAGLIFLOZIN 10 MG TABLET (JARDIANCE) PO SCH (08:25)
[2022-04-12] MEDS: RT-ALBUTEROL/IPRATROPIUM 3 ML (DUONEB) VIAL INH SCH ×2 (08:25→21:38)
[2022-04-12] MEDS: ASPIRIN 81 MG CHEW (CHILDREN'S ASA) PO SCH (08:25)
[2022-04-12] MEDS: MELOXICAM 7.5 MG (MOBIC) TABLET PO SCH (08:27)
[2022-04-12] MEDS: SPIRONOLACTONE 25 MG (ALDACTONE) TAB PO SCH (08:28)
[2022-04-12] MEDS: lisINopril 5 MG (PRINIVIL) TABLET PO SCH (09:23)
[2022-04-12] MEDS ORDERED: LIDOCAINE 1% INJ 30 ML (XYLOCAINE) VIAL ONE (11:12)
[2022-04-12] MEDS ORDERED: NS IV 1000 ML 1,000 ML ONE (11:12)
[2022-04-12] MEDS ORDERED: MIDAZOLAM 5 MG/5 ML (VERSED) VIAL ONE (11:12)
[2022-04-12] MEDS ORDERED: HEParin (CATH LAB) 2,000 ML IV ONE (11:12)
[2022-04-12] MEDS ORDERED: fentaNYL INJ 100 MCG/2 ML AMP ONE (11:12)
--- NOTE | 2022-04-12 12:15 | Progress Note - Cardiology ---
Cardiology SOAP Progress Note Subjective: Gen malaise and weakness Shortness of breath somewhat better No cp or palp or syncope No focal weakness No n/v/d Objective: I&O/Vital Signs 04/12/22 04/12/22 04/12/22 04/12/22 01:00 03:46 07:00 07:42 Temp 36.2 37.2 Pulse 101 98 120 102 Resp 18 20 B/P (MAP) 104/70 (81) 113/69 (84) Pulse Ox 92 95 O2 Delivery Room Air Room Air 04/12/22 04/12/22 04/12/22 08:25 08:30 11:24 Temp 37.1 Pulse 110 Resp 20 B/P (MAP) 113/69 (84) Pulse Ox 97 92 O2 Delivery Room Air Room Air Room Air O2 Flow Rate 0.00 04/12/22 00:00 Intake Total 1052 ml Output Total 600 ml Balance 452 ml Constitutional: AAO x 3, well-developed, well-nourished Respiratory: No accessory muscle use, No respiratory distress; chest expansion is symmetric, chest is bilaterally symmetric, other (diminished lower lobes bilat) Cardiovascular: regular rate-rhythm, systolic murmur Gastrointestional: No tender; soft, round, audible bowel sounds Extremities: no lower extremity edema bilateral Neurologic/Psychiatric: grossly intact (moves all extremities) Skin: No rash on exposed areas, No ulcerations on exposed areas Results/Procedures: Labs Laboratory Tests 04/12/22 05:11: White Blood Count 6.5, Red Blood Count 4.71, Hemoglobin 13.7, Hematocrit 43, Mean Corpuscular Volume 91, Mean Corpuscular Hemoglobin 29, Mean Corpuscular Hemoglobin Concent 32, Red Cell Distribution Width 13.3, Platelet Count 197, Mean Platelet Volume 11.8, Immature Granulocyte % (Auto) 0, Neutrophils (%) (Auto) 48, Lymphocytes (%) (Auto) 36, Monocytes (%) (Auto) 7, Eosinophils (%) (Auto) 8, Basophils (%) (Auto) 1, Neutrophils # (Auto) 3.1, Lymphocytes # (Auto) 2.4, Monocytes # (Auto) 0.4, Eosinophils # (Auto) 0.5H, Basophils # (Auto) 0.1, Immature Granulocyte # (Auto) 0.0, Sodium Level 144, Potassium Level 3.7, Chloride Level 109H, Carbon Dioxide Level 23, Anion Gap 12, Blood Urea Nitrogen 29H, Creatinine 1.05, Estimat Glomerular Filtration Rate 56, BUN/Creatinine Ratio 28, Glucose Level 80, Calcium Level 9.1, Corrected Calcium 9.5, Total Bilirubin 1.2H, Aspartate Amino Transf (AST/SGOT) 23, Alanine Aminotransferase (ALT/SGPT) 34, Alkaline Phosphatase 55, Total Protein 6.3L, Albumin 3.5 Laboratory Tests 04/11/22 06:08 04/12/22 05:11 A/P: Assessment: 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 LVEF 25-30%. Mod diffuse hypokinesis. Grade 3 diastolic dysfunction. LA and RA are mildly dilated. Mod to severe MR. Small right pleural effusion. PASP 50-55 mmHg - Card cath on 04-12-22: no significant CAD, RCA dominant, LVEF 20%, global hypokinesis, LVEDP 22 mmHg, MR difficult to determine on this study Pulmonary HTN - probably due to L heart failure HLD Mild hypothyroidism H/o depression Chronic arthritis and back pain CKD 2-3, probably with an acute component of prerenal azotemia due to diuretic therapy Plan: * Complex management * Continue to optimize heart failure meds * Resume furosemide at a lower dose * LifeVest prior to d/c * May need further w/u for mitral regurg [facility]ELI PRICE [facility] Apr 12, 2022 12:15
[2022-04-12] MEDS ORDERED: NS IV 1000 ML 1,000 ML IV SCH (12:30)
[2022-04-12] MEDS ORDERED: PATIENT MAY USE OWN MEDS, ALL PO SCH (12:30)
[2022-04-12] MEDS: ENOXAPARIN 40 MG/0.4 ML (LOVENOX) SYR SC SCH (17:03)
[2022-04-12] MEDS: OLANZapine 2.5 MG (ZyPREXA) TAB PO SCH (20:12)
[2022-04-12] MEDS: [UNRECOGNIZED DRUG - REMARK] PO SCH (20:12)
[2022-04-13 03:54] VITALS: BP 98/68
[2022-04-13 06:03] LABS: BASOPHILS # (AUTO) 0.1 10^3/uL (0.0-0.1); BASOPHILS % (AUTO) 1 % (0-10); EOSINOPHILS # (AUTO) 0.3 10^3/uL (0.0-0.3); EOSINOPHILS % (AUTO) 6 % (0-10); HEMATOCRIT 40 % (35-52); HEMOGLOBIN 12.9 g/dL (11.5-16.0); LYMPHOCYTES % (AUTO) 33 % (12-44); MEAN CORPUSCULAR HEMOGLOBIN 29 pg (25-34); MEAN CORPUSCULAR HGB CONC 32 g/dL (32-36); MEAN CORPUSCULAR VOLUME 91 fL (80-99); MEAN PLATELET VOLUME 11.2 fL (9.0-12.2); MONOCYTES # (AUTO) 0.5 10^3/uL (0.0-1.0); MONOCYTES % (AUTO) 8 % (0-12); NEUTROPHILS # (AUTO) 3.2 10^3/uL (1.8-7.8); NEUTROPHILS % (AUTO) 52 % (42-75); PLATELET COUNT 189 10^3/uL (130-400)
[2022-04-13] MEDS: LEVOTHYROXINE 88 MCG (LEVOTHORID) TAB PO SCH (06:19)
[2022-04-13 06:22] LABS: ALBUMIN 3.4 GM/DL (3.2-4.5); BILIRUBIN,TOTAL 1.2 MG/DL (0.1-1.0); CALCIUM 8.8 MG/DL (8.5-10.1); CREATININE SERUM 0.86 MG/DL (0.60-1.30); TOTAL PROTEIN 5.9 GM/DL (6.4-8.2)
[2022-04-13] MEDS: RT-ALBUTEROL/IPRATROPIUM 3 ML (DUONEB) VIAL INH SCH ×2 (08:34→20:11)
[2022-04-13] MEDS: MELOXICAM 7.5 MG (MOBIC) TABLET PO SCH (08:36)
[2022-04-13] MEDS: SPIRONOLACTONE 25 MG (ALDACTONE) TAB PO SCH (08:36)
[2022-04-13] MEDS: DOCUSATE SODIUM 100 MG (COLACE) CAP PO SCH ×2 (08:36→19:56)
[2022-04-13] MEDS: lisINopril 5 MG (PRINIVIL) TABLET PO SCH (08:36)
[2022-04-13] MEDS: EMPAGLIFLOZIN 10 MG TABLET (JARDIANCE) PO SCH (08:36)
[2022-04-13] MEDS: FUROSEMIDE 20 MG (LASIX) TAB PO SCH (08:36)
[2022-04-13] MEDS: ASPIRIN 81 MG CHEW (CHILDREN'S ASA) PO SCH (08:36)
--- NOTE | 2022-04-13 10:41 | Progress Note - Cardiology ---
Cardiology SOAP Progress Note Subjective: Lying in bed States she feels unwell this morning Reporting palpitations that makes her feel she needs to cough No c/o CP Objective: I&O/Vital Signs 04/13/22 04/13/22 04/13/22 04/14/22 19:50 19:55 20:11 00:51 Temp 37.0 36.3 Pulse 96 85 Resp 18 16 B/P (MAP) 111/69 (83) 104/58 (73) Pulse Ox 94 97 O2 Delivery Nasal Cannula Nasal Cannula Nasal Cannula Nasal Cannula O2 Flow Rate 1.00 1.00 1.00 1.00 04/14/22 04/14/22 01:00 04:21 Temp 36.2 Pulse 75 81 Resp 16 B/P (MAP) 98/50 (66) Pulse Ox 96 O2 Delivery Nasal Cannula O2 Flow Rate 1.00 04/14/22 00:00 Intake Total 840 ml Output Total 400 ml Balance 440 ml Constitutional: AAO x 3, well-developed, well-nourished Respiratory: No accessory muscle use, No respiratory distress; chest expansion is symmetric, chest is bilaterally symmetric, other (diminished lower lobes bilat) Cardiovascular: regular rate-rhythm, systolic murmur Gastrointestional: No tender; soft, round, audible bowel sounds Extremities: no lower extremity edema bilateral Neurologic/Psychiatric: grossly intact (moves all extremities) Skin: No rash on exposed areas, No ulcerations on exposed areas Results/Procedures: Labs Laboratory Tests 04/14/22 05:05: White Blood Count 6.2, Red Blood Count 4.24, Hemoglobin 12.3, Hematocrit 39, Mean Corpuscular Volume 91, Mean Corpuscular Hemoglobin 29, Mean Corpuscular Hemoglobin Concent 32, Red Cell Distribution Width 13.3, Platelet Count 183, Mean Platelet Volume 11.1, Immature Granulocyte % (Auto) 0, Neutrophils (%) (Auto) 51, Lymphocytes (%) (Auto) 35, Monocytes (%) (Auto) 8, Eosinophils (%) (Auto) 6, Basophils (%) (Auto) 1, Neutrophils # (Auto) 3.2, Lymphocytes # (Auto) 2.2, Monocytes # (Auto) 0.5, Eosinophils # (Auto) 0.4H, Basophils # (Auto) 0.1, Immature Granulocyte # (Auto) 0.0, Sodium Level 140, Potassium Level 4.0, Chloride Level 111H, Carbon Dioxide Level 23, Anion Gap 6, Blood Urea Nitrogen 26H, Creatinine 0.93, Estimat Glomerular Filtration Rate 64, BUN/Creatinine Ratio 28, Glucose Level 85, Calcium Level 8.4L, Corrected Calcium 9.0, Total Bilirubin 1.4H, Aspartate Amino Transf (AST/SGOT) 16, Alanine Aminotransferase (ALT/SGPT) 20, Alkaline Phosphatase 44, Total Protein 5.7L, Albumin 3.2 A/P: Assessment: 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 LVEF 25-30%. Mod diffuse hypokinesis. Grade 3 diastolic dysfunction. LA and RA are mildly dilated. Mod to severe MR. Small right pleural effusion. PASP 50-55 mmHg - Card cath on 04-12-22: no significant CAD, RCA dominant, LVEF 20%, global hypokinesis, LVEDP 22 mmHg, MR difficult to determine on this study Pulmonary HTN - probably due to L heart failure HLD Mild hypothyroidism H/o depression Chronic arthritis and back pain CKD 2-3, probably with an acute component of prerenal azotemia due to diuretic therapy Plan: * Complex management * Tachycardic this morning - EKG sinus tachycardia - give digoxin today and increase Coreg to 6.25mg BID * C/O cough and d/t low BP we will stop Lisinopril * Continue to optimize heart failure meds as tolerated * Continue current dose of Lasix * LifeVest has been set up and is in the room * May need further w/u for mitral regurg ASA JUAREZ [employer] Apr 13, 2022 10:41
[2022-04-13] MEDS ORDERED: DIGOXIN 0.25 MG/ML (LANOXIN) 2 ML AMP IV NR (11:00)
[2022-04-13 12:36] VITALS: BP 108/68
[2022-04-13 15:24] VITALS: BP 106/71
[2022-04-13] MEDS: ENOXAPARIN 40 MG/0.4 ML (LOVENOX) SYR SC SCH (17:29)
--- NOTE | 2022-04-13 17:38 | Progress Note - Cardiology ---
Cardiology SOAP Progress Note Subjective: A feeling of rapid heart beat this am that resolved with iv dig Does not report cp or palp or syncope or shortness of breath at rest Some gen malaise Does not report n/v/d Objective: I&O/Vital Signs 04/13/22 04/13/22 04/13/22 04/13/22 06:47 07:08 07:09 07:30 Pulse 136 84 133 125 04/13/22 04/13/22 04/13/22 04/13/22 07:49 08:00 08:30 08:31 Temp 36.8 Pulse 120 122 Resp 16 B/P (MAP) Pulse Ox 98 O2 Delivery Nasal Cannula Nasal Cannula Nasal Cannula O2 Flow Rate 1.00 1.00 1.00 04/13/22 04/13/22 04/13/22 04/13/22 12:36 12:45 13:55 15:24 Temp 37.2 36.5 37.2 Pulse 118 91 94 90 Resp 16 18 B/P (MAP) 108/68 (81) 106/71 (83) Pulse Ox 94 96 O2 Delivery Nasal Cannula Nasal Cannula O2 Flow Rate 1.00 1.00 04/13/22 00:00 Intake Total 460 ml Output Total 200 ml Balance 260 ml Constitutional: AAO x 3, well-developed, well-nourished Respiratory: No accessory muscle use, No respiratory distress; chest expansion is symmetric, chest is bilaterally symmetric, other (diminished lower lobes bilat) Cardiovascular: regular rate-rhythm, systolic murmur Gastrointestional: No tender; soft, round, audible bowel sounds Extremities: no lower extremity edema bilateral Neurologic/Psychiatric: grossly intact (moves all extremities) Skin: No rash on exposed areas, No ulcerations on exposed areas Results/Procedures: Labs Laboratory Tests 04/13/22 05:40: White Blood Count 6.0, Red Blood Count 4.46, Hemoglobin 12.9, Hematocrit 40, Mean Corpuscular Volume 91, Mean Corpuscular Hemoglobin 29, Mean Corpuscular Hemoglobin Concent 32, Red Cell Distribution Width 13.4, Platelet Count 189, Mean Platelet Volume 11.2, Immature Granulocyte % (Auto) 0, Neutrophils (%) (Auto) 52, Lymphocytes (%) (Auto) 33, Monocytes (%) (Auto) 8, Eosinophils (%) (Auto) 6, Basophils (%) (Auto) 1, Neutrophils # (Auto) 3.2, Lymphocytes # (Auto) 2.0, Monocytes # (Auto) 0.5, Eosinophils # (Auto) 0.3, Basophils # (Auto) 0.1, Immature Granulocyte # (Auto) 0.0, Sodium Level 142, Potassium Level 4.0, Chloride Level 113H, Carbon Dioxide Level 21, Anion Gap 8, Blood Urea Nitrogen 25H, Creatinine 0.86, Estimat Glomerular Filtration Rate 71, BUN/Creatinine Ratio 29, Glucose Level 96, Calcium Level 8.8, Corrected Calcium 9.3, Total Bilirubin 1.2H, Aspartate Amino Transf (AST/SGOT) 18, Alanine Aminotransferase (ALT/SGPT) 28, Alkaline Phosphatase 50, Total Protein 5.9L, Albumin 3.4 Laboratory Tests 04/12/22 05:11 04/13/22 05:40 A/P: Assessment: 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 LVEF 25-30%. Mod diffuse hypokinesis. Grade 3 diastolic dysfunction. LA and RA are mildly dilated. Mod to severe MR. Small right pleural effusion. PASP 50-55 mmHg - Card cath on 04-12-22: no significant CAD, RCA dominant, LVEF 20%, global hypokinesis, LVEDP 22 mmHg, MR difficult to determine on this study Pulmonary HTN - probably due to L heart failure HLD Mild hypothyroidism H/o depression Chronic arthritis and back pain CKD 2-3, probably with an acute component of prerenal azotemia due to diuretic therapy Plan: * Complex management * Tachycardic this morning - EKG sinus tachycardia - give digoxin today and increase Coreg to 6.25mg BID * C/O cough and d/t low BP we will stop Lisinopril * Continue to optimize heart failure meds as tolerated * Continue current dose of Lasix * LifeVest has been set up and is in the room * May need further w/u for mitral regurg [facility]EL[facility]ICE [facility] Apr 13, 2022 17:38
--- NOTE | 2022-04-13 19:20 | Progress Note ---
Subjective Subjective/Events-last exam Pt states she is feeling fairly well, breathing is much better, denies concerns. Objective Exam Last Set of Vital Signs Vital Signs Date Time Temp Pulse Resp B/P (MAP) Pulse Ox O2 Delivery O2 Flow Rate FiO2 04/13/22 15:24 37.2 90 18 106/71 (83) 96 Nasal Cannula 1.00 04/09/22 23:03 21 Capillary Refill : Less Than 3 Seconds I&O Intake and Output 04/13/22 00:00 Intake Total 760 ml Output Total 200 ml Balance 560 ml Intake Oral 760 ml Output Urine Total 200 ml # Voids 3 General: Alert, No Acute Distress Lungs: Other (bibasilar rales) Heart: Other (tachycardic) Extremities: No Edema Neuro: Normal Speech Psych/Mental Status: Mental Status NL Results/Procedures Lab Laboratory Tests 04/13/22 05:40: White Blood Count 6.0, Red Blood Count 4.46, Hemoglobin 12.9, Hematocrit 40, Mean Corpuscular Volume 91, Mean Corpuscular Hemoglobin 29, Mean Corpuscular Hemoglobin Concent 32, Red Cell Distribution Width 13.4, Platelet Count 189, Mean Platelet Volume 11.2, Immature Granulocyte % (Auto) 0, Neutrophils (%) (Auto) 52, Lymphocytes (%) (Auto) 33, Monocytes (%) (Auto) 8, Eosinophils (%) (Auto) 6, Basophils (%) (Auto) 1, Neutrophils # (Auto) 3.2, Lymphocytes # (Auto) 2.0, Monocytes # (Auto) 0.5, Eosinophils # (Auto) 0.3, Basophils # (Auto) 0.1, Immature Granulocyte # (Auto) 0.0, Sodium Level 142, Potassium Level 4.0, Chloride Level 113H, Carbon Dioxide Level 21, Anion Gap 8, Blood Urea Nitrogen 25H, Creatinine 0.86, Estimat Glomerular Filtration Rate 71, BUN/Creatinine Ratio 29, Glucose Level 96, Calcium Level 8.8, Corrected Calcium 9.3, Total Bilirubin 1.2H, Aspartate Amino Transf (AST/SGOT) 18, Alanine Aminotransferase (ALT/SGPT) 28, Alkaline Phosphatase 50, Total Protein 5.9L, Albumin 3.4 Radiology NAME: JESENIA HILL [facility] REC#: [id number] PT STATUS: ADM Cortney : 1950 PHYSICIAN: JULIEN MUHAMMAD DO ADMIT DATE: 04/09/22 Signed Date of Exam:04/09/22 CHEST PA/LAT (2 VIEW) CLINICAL INDICATION: Patient with cough and cold-like symptoms. EXAM: Chest x-ray PA and lateral views. COMPARISON: None. FINDINGS: Lungs/pleura: There are mild patchy airspace opacities involving both lung bases. There is no pneumothorax. There is no pleural effusion. Mediastinum: Unremarkable. Pulmonary vasculature: There is mild pulmonary vascular congestion. Heart: There is cardiomegaly. Bones/extrathoracic soft tissue: There are hypertrophic spurs involving the thoracic spine. There is left curvature of the lower thoracic spine. IMPRESSION: 1: There is cardiomegaly and pulmonary vascular congestion which could be seen with congestive heart failure. 2: There are mild patchy airspace opacities involving both lung bases which may represent pulmonary congestion, but lung infiltrates may also be considered. Dictated by: Dictated on workstation # [id number] Dict: 04/09/22 1219 Trans: 04/09/221703 [id number] [id number] Interpreted by: ANDREW BOYCE MD Electronically signed by: ANDREW BOYCE MD 04/09/221703 NAME: JESENIA HILL [facility] REC#: [id number] PT STATUS: ADM Cort[place] : 1950 PHYSICIAN: JULIEN MUHAMMAD DO ADMIT DATE: 04/09/22 Signed Date of Exam:04/09/22 CT ANGIO CHEST W PROCEDURE: CT angiography of the chest with contrast. TECHNIQUE: Multiple contiguous axial images were obtained through the chest after uneventful bolus administration of intravenous contrast. 3D reconstructed CTA MIP acquisitions were also performed. Auto Exposure Controls were utilized during the CT exam to meet ALARA standards for radiation dose reduction. INDICATION: Dyspnea and cough with elevated D-dimer. FINDINGS: There is good opacification of pulmonary arteries without intraluminal filling defect detected. There is cardiomegaly without enlargement of right atrium. There is mild left and [id number] right pleural effusion. There is diffuse ground-glass density likely representing pulmonary edema throughout the lungs. There is no significant pericardial effusion. Occasional mildly prominent mediastinal lymph nodes are noted. IMPRESSION: Findings are most suggestive of congestive heart failure with pleural fluid, greater on the right. There is no CTA evidence of pulmonary embolism or other definite acute abnormality in the thorax. Dictated by: Dictated on workstation # [id number] Dict: 04/09/22 1326 Trans: 04/09/22 [id number] Interpreted by: JUAN ÁLVAREZ MD Electronically signed by: JUAN ÁLVAREZ MD 04/09/22 0330 Assessment/Plan Assessment/Plan (1) CHF (congestive heart failure) Assessment & Plan: New diagnosis, EF 20-25%, Cardiology consulted, appreciate recommendations. Started on diuresis, empagliflozin, beta mariam. Not tolerating ACEI. Life Vest in room. Cath 04/12 no CAD. Does have MR which may need further eval per Cardiology. Qualifiers: Qualified Codes: I50.41 - Acute combined systolic (congestive) and diastolic (congestive) heart failure (2) Pulmonary hypertension Assessment & Plan: Suspect secondary to CHF (3) Hyperlipidemia Status: Chronic Assessment & Plan: On lovastatin prior to admit (4) Hypothyroidism Status: Chronic Assessment & Plan: Increased dose of levothyroxine from home, TSH slightly elevated. (5) Bipolar 1 disorder Status: Chronic Assessment & Plan: Home citalopram and olanzepine (6) CKD (chronic kidney disease) Status: Chronic Qualifiers: Qualified Codes: N18.31 - Chronic kidney disease, stage 3a (7) DVT prophylaxis Status: Acute Assessment & Plan: Enoxaparin EVELIA GANNON MD Apr 13, 2022 19:20
[2022-04-13 19:50] VITALS: BP 111/69
[2022-04-13] MEDS: OLANZapine 2.5 MG (ZyPREXA) TAB PO SCH (19:56)
[2022-04-13] MEDS: [UNRECOGNIZED DRUG - REMARK] PO SCH (19:57)
[2022-04-14 00:51] VITALS: BP 104/58
[2022-04-14 04:21] VITALS: BP 98/50
[2022-04-14 05:36] LABS: BASOPHILS # (AUTO) 0.1 10^3/uL (0.0-0.1); BASOPHILS % (AUTO) 1 % (0-10); EOSINOPHILS # (AUTO) 0.4 10^3/uL (0.0-0.3); EOSINOPHILS % (AUTO) 6 % (0-10); HEMATOCRIT 39 % (35-52); HEMOGLOBIN 12.3 g/dL (11.5-16.0); LYMPHOCYTES # (AUTO) 2.2 10^3/uL (1.0-4.0); LYMPHOCYTES % (AUTO) 35 % (12-44); MEAN CORPUSCULAR HEMOGLOBIN 29 pg (25-34); MEAN CORPUSCULAR HGB CONC 32 g/dL (32-36); MEAN CORPUSCULAR VOLUME 91 fL (80-99); MEAN PLATELET VOLUME 11.1 fL (9.0-12.2); MONOCYTES # (AUTO) 0.5 10^3/uL (0.0-1.0); MONOCYTES % (AUTO) 8 % (0-12); NEUTROPHILS # (AUTO) 3.2 10^3/uL (1.8-7.8); NEUTROPHILS % (AUTO) 51 % (42-75); PLATELET COUNT 183 10^3/uL (130-400); WHITE BLOOD COUNT 6.2 10^3/uL (4.3-11.0)
[2022-04-14 05:52] LABS: ALBUMIN 3.2 GM/DL (3.2-4.5)
[2022-04-14 05:54] LABS: CALCIUM 8.4 MG/DL (8.5-10.1)
[2022-04-14 05:55] LABS: TOTAL PROTEIN 5.7 GM/DL (6.4-8.2)
[2022-04-14 05:57] LABS: BILIRUBIN,TOTAL 1.4 MG/DL (0.1-1.0)
[2022-04-14 05:58] LABS: CREATININE SERUM 0.93 MG/DL (0.60-1.30)
[2022-04-14] MEDS: LEVOTHYROXINE 88 MCG (LEVOTHORID) TAB PO SCH (06:03)
[2022-04-14 08:00] VITALS: BP 110/67
[2022-04-14] MEDS: MELOXICAM 7.5 MG (MOBIC) TABLET PO SCH (08:28)
[2022-04-14] MEDS: EMPAGLIFLOZIN 10 MG TABLET (JARDIANCE) PO SCH (08:28)
[2022-04-14] MEDS: SPIRONOLACTONE 25 MG (ALDACTONE) TAB PO SCH (08:28)
[2022-04-14] MEDS: FUROSEMIDE 20 MG (LASIX) TAB PO SCH (08:28)
[2022-04-14] MEDS: ASPIRIN 81 MG CHEW (CHILDREN'S ASA) PO SCH (08:28)
[2022-04-14] MEDS: DOCUSATE SODIUM 100 MG (COLACE) CAP PO SCH (08:29)
[2022-04-14] MEDS ORDERED: DIGOXIN 0.25 MG (LANOXIN) TAB PO SCH (09:00)
[2022-04-14] MEDS: RT-ALBUTEROL/IPRATROPIUM 3 ML (DUONEB) VIAL INH SCH (10:18)
[2022-04-14 12:00] VITALS: BP 108/58
--- NOTE | 2022-04-14 12:06 | Progress Note - Cardiology ---
Cardiology SOAP Progress Note Subjective: Sitting up in recliner at the bedside States she feels much better today Reports feeling tired when she first wakes up No c/o palpitations or CP SOB improved Objective: I&O/Vital Signs 04/14/22 04/14/22 04/14/22 04/14/22 04:21 06:58 08:00 08:00 Temp 36.2 36.4 Pulse 81 78 91 Resp 16 18 B/P (MAP) 98/50 (66) 110/67 (81) Pulse Ox 96 96 O2 Delivery Nasal Cannula Nasal Cannula Room Air O2 Flow Rate 1.00 1.00 04/14/22 04/14/22 04/14/22 04/14/22 10:18 12:00 12:47 13:29 Temp 36.4 Pulse 79 84 150 Resp 18 B/P (MAP) 108/58 (75) Pulse Ox 94 O2 Delivery Nasal Cannula Room Air O2 Flow Rate 1.00 04/14/22 00:00 Intake Total 840 ml Output Total 400 ml Balance 440 ml Constitutional: AAO x 3, well-developed, well-nourished Respiratory: No accessory muscle use, No respiratory distress; chest expansion is symmetric, chest is bilaterally symmetric, other (diminished lower lobes bilat) Cardiovascular: regular rate-rhythm, systolic murmur Gastrointestional: No tender; soft, round, audible bowel sounds Extremities: no lower extremity edema bilateral Neurologic/Psychiatric: grossly intact (moves all extremities) Skin: No rash on exposed areas, No ulcerations on exposed areas Results/Procedures: Labs Laboratory Tests 04/14/22 05:05: White Blood Count 6.2, Red Blood Count 4.24, Hemoglobin 12.3, Hematocrit 39, Mean Corpuscular Volume 91, Mean Corpuscular Hemoglobin 29, Mean Corpuscular Hemoglobin Concent 32, Red Cell Distribution Width 13.3, Platelet Count 183, Mean Platelet Volume 11.1, Immature Granulocyte % (Auto) 0, Neutrophils (%) (Auto) 51, Lymphocytes (%) (Auto) 35, Monocytes (%) (Auto) 8, Eosinophils (%) (Auto) 6, Basophils (%) (Auto) 1, Neutrophils # (Auto) 3.2, Lymphocytes # (Auto) 2.2, Monocytes # (Auto) 0.5, Eosinophils # (Auto) 0.4H, Basophils # (Auto) 0.1, Immature Granulocyte # (Auto) 0.0, Sodium Level 140, Potassium Level 4.0, Chloride Level 111H, Carbon Dioxide Level 23, Anion Gap 6, Blood Urea Nitrogen 26H, Creatinine 0.93, Estimat Glomerular Filtration Rate 64, BUN/Creatinine Ratio 28, Glucose Level 85, Calcium Level 8.4L, Corrected Calcium 9.0, Total Bilirubin 1.4H, Aspartate Amino Transf (AST/SGOT) 16, Alanine Aminotransferase (ALT/SGPT) 20, Alkaline Phosphatase 44, Total Protein 5.7L, Albumin 3.2 A/P: Assessment: 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 LVEF 25-30%. Mod diffuse hypokinesis. Grade 3 diastolic dysfunction. LA and RA are mildly dilated. Mod to severe MR. Small right pleural effusion. PASP 50-55 mmHg - Card cath on 04-12-22: no significant CAD, RCA dominant, LVEF 20%, global hypokinesis, LVEDP 22 mmHg, MR difficult to determine on this study Pulmonary HTN - probably due to L heart failure HLD Mild hypothyroidism H/o depression Chronic arthritis and back pain CKD 2-3, probably with an acute component of prerenal azotemia due to diuretic therapy Plan: * Complex management * HR improved with increased dose of Coreg and addition of Digoxin * C/O cough and d/t low BP we will stop Lisinopril * Continue to optimize heart failure meds as tolerated * Continue current dose of Lasix * LifeVest has been set up and is in the room * May need further w/u for mitral regurg ASA JUAREZ Apr 14, 2022 12:06
[2022-04-14] MEDS ORDERED: SPIR25TA5 PO (12:07)
[2022-04-14] MEDS ORDERED: FURO20TA4 PO (12:07)
[2022-04-14] MEDS ORDERED: CARV6.252 PO (12:07)
[2022-04-14] MEDS ORDERED: EMPA10TA PO (12:07)
[2022-04-14] MEDS ORDERED: DIGO250T15 PO (12:07)
--- NOTE | 2022-04-14 14:17 | Progress Note - Cardiology ---
Cardiology SOAP Progress Note Subjective: Shortness of breath better No cp or palp or syncope or swelling Malaise and weakness better No n/v/d No focal weakness Wishes to go home Objective: I&O/Vital Signs 04/14/22 04/14/22 04/14/22 04/14/22 04:21 06:58 08:00 08:00 Temp 36.2 36.4 Pulse 81 78 91 Resp 16 18 B/P (MAP) 98/50 (66) 110/67 (81) Pulse Ox 96 96 O2 Delivery Nasal Cannula Nasal Cannula Room Air O2 Flow Rate 1.00 1.00 04/14/22 04/14/22 04/14/22 10:18 12:47 13:29 Pulse 84 150 Pulse Ox 94 O2 Delivery Nasal Cannula O2 Flow Rate 1.00 04/14/22 00:00 Intake Total 840 ml Output Total 400 ml Balance 440 ml Constitutional: AAO x 3, well-developed, well-nourished Respiratory: No accessory muscle use, No respiratory distress; chest expansion is symmetric, chest is bilaterally symmetric, other (diminished lower lobes bilat) Cardiovascular: regular rate-rhythm, systolic murmur Gastrointestional: No tender; soft, round, audible bowel sounds Extremities: no lower extremity edema bilateral Neurologic/Psychiatric: grossly intact (moves all extremities) Skin: No rash on exposed areas, No ulcerations on exposed areas Results/Procedures: Labs Laboratory Tests 04/14/22 05:05: White Blood Count 6.2, Red Blood Count 4.24, Hemoglobin 12.3, Hematocrit 39, Mean Corpuscular Volume 91, Mean Corpuscular Hemoglobin 29, Mean Corpuscular Hemoglobin Concent 32, Red Cell Distribution Width 13.3, Platelet Count 183, Mean Platelet Volume 11.1, Immature Granulocyte % (Auto) 0, Neutrophils (%) (Auto) 51, Lymphocytes (%) (Auto) 35, Monocytes (%) (Auto) 8, Eosinophils (%) (Auto) 6, Basophils (%) (Auto) 1, Neutrophils # (Auto) 3.2, Lymphocytes # (Auto) 2.2, Monocytes # (Auto) 0.5, Eosinophils # (Auto) 0.4H, Basophils # (Auto) 0.1, Immature Granulocyte # (Auto) 0.0, Sodium Level 140, Potassium Level 4.0, Chloride Level 111H, Carbon Dioxide Level 23, Anion Gap 6, Blood Urea Nitrogen 26H, Creatinine 0.93, Estimat Glomerular Filtration Rate 64, BUN/Creatinine Ratio 28, Glucose Level 85, Calcium Level 8.4L, Corrected Calcium 9.0, Total Bilirubin 1.4H, Aspartate Amino Transf (AST/SGOT) 16, Alanine Aminotransferase (ALT/SGPT) 20, Alkaline Phosphatase 44, Total Protein 5.7L, Albumin 3.2 Laboratory Tests 04/13/22 05:40 04/14/22 05:05 A/P: Assessment: 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 LVEF 25-30%. Mod diffuse hypokinesis. Grade 3 diastolic dysfunction. LA and RA are mildly dilated. Mod to severe MR. Small right pleural effusion. PASP 50-55 mmHg - Card cath on 04-12-22: no significant CAD, RCA dominant, LVEF 20%, global hypokinesis, LVEDP 22 mmHg, MR difficult to determine on this study Pulmonary HTN - probably due to L heart failure HLD Mild hypothyroidism H/o depression Chronic arthritis and back pain CKD 2-3, probably with an acute component of prerenal azotemia due to diuretic therapy Unable to tolerate CHAGO-inhib / ARB due to low bp Plan: * Complex management * HR improved with increased dose of Coreg and addition of Digoxin * C/O cough and d/t low BP: unable to tolerate CHAGO-inhib * Continue furosemide and spironolactone * LifeVest has been set up * Close outpt f/u advised [facility] Apr 14, 2022 14:17
[2022-04-14 16:00] VITALS: BP 118/68
[2022-04-14] MEDS: ENOXAPARIN 40 MG/0.4 ML (LOVENOX) SYR SC SCH (16:34)
--- NOTE | 2022-04-14 22:06 | Discharge Summary ---
Discharge Summary Hospital Course Problems/Diagnosis: (1) CHF (congestive heart failure) Assessment & Plan: New diagnosis, EF 20-25%, Cardiology consulted, appreciate recommendations. Started on diuresis, empagliflozin, beta mariam. Not tolerating ACEI. Life Vest placed. Cath 04/12 no CAD. Does have MR which may need further eval per Cardiology. Qualifiers: Qualified Codes: I50.41 - Acute combined systolic (congestive) and diastolic (congestive) heart failure (2) Pulmonary hypertension Assessment & Plan: Suspect secondary to CHF (3) Hyperlipidemia Status: Chronic Assessment & Plan: On lovastatin prior to admit (4) Hypothyroidism Status: Chronic Assessment & Plan: Increased dose of levothyroxine from home, TSH slightly elevated. (5) Bipolar 1 disorder Status: Chronic Assessment & Plan: Home citalopram and olanzepine (6) CKD (chronic kidney disease) Status: Chronic Qualifiers: Qualified Codes: N18.31 - Chronic kidney disease, stage 3a Hospital Course Date of Admission: Apr 09, 2022 at 16:40 Admission Diagnosis : Family Physician/Provider: Saul Schultz MD Date of Discharge: 04/14/22 Discharge Diagnosis: See problem list Hospital Course: See problem list Labs and Pending Lab Test: Laboratory Tests 04/14/22 05:05: White Blood Count 6.2, Red Blood Count 4.24, Hemoglobin 12.3, Hematocrit 39, Mean Corpuscular Volume 91, Mean Corpuscular Hemoglobin 29, Mean Corpuscular Hemoglobin Concent 32, Red Cell Distribution Width 13.3, Platelet Count 183, Mean Platelet Volume 11.1, Immature Granulocyte % (Auto) 0, Neutrophils (%) (Auto) 51, Lymphocytes (%) (Auto) 35, Monocytes (%) (Auto) 8, Eosinophils (%) (Auto) 6, Basophils (%) (Auto) 1, Neutrophils # (Auto) 3.2, Lymphocytes # (Auto) 2.2, Monocytes # (Auto) 0.5, Eosinophils # (Auto) 0.4H, Basophils # (Auto) 0.1, Immature Granulocyte # (Auto) 0.0, Sodium Level 140, Potassium Level 4.0, Chloride Level 111H, Carbon Dioxide Level 23, Anion Gap 6, Blood Urea Nitrogen 26H, Creatinine 0.93, Estimat Glomerular Filtration Rate 64, BUN/Creatinine Ratio 28, Glucose Level 85, Calcium Level 8.4L, Corrected Calcium 9.0, Total Bilirubin 1.4H, Aspartate Amino Transf (AST/SGOT) 16, Alanine Aminotransferase (ALT/SGPT) 20, Alkaline Phosphatase 44, Total Protein 5.7L, Albumin 3.2 Home Meds Active Jardiance (Empagliflozin) 10 Mg Tablet 10 Mg PO DAILY Furosemide 20 Mg Tablet 20 Mg PO DAILY Spironolactone 25 Mg Tablet 25 Mg PO DAILY Carvedilol 6.25 Mg Tablet 6.25 Mg PO BID Digox (Digoxin) 250 Mcg (0.25 Mg) Tablet 0.25 Mg PO DAILY Reported Tylenol Extra Strength (Acetaminophen) 500 Mg Tablet 500-1,000 Mg PO Q8H PRN Citalopram HBr (Citalopram Hydrobromide) 40 Mg Tablet 20 Mg PO HS TAKE OF A 40MG Tramadol HCl 50 Mg Tablet 50 Mg PO Q6H PRN Lovastatin 10 Mg Tablet 10 Mg PO HS Levothyroxine Sodium 75 Mcg Tablet 75 Mcg PO DAILY Olanzapine 10 Mg Tablet 5 Mg PO HS TAKES OF A 10MG Assessment/Pt DC Instructions Follow up with Dr. Montgomery as directed. Follow up with Dr. Schultz within a week. Discharge Diet: Cardiac Diet Activity as Tolerated: Yes Discharge Physical Examination Allergies: Coded Allergies: No Known Drug Allergies (Unverified , 04/09/22) General Appearance: No Apparent Distress Respiratory: Lungs Clear, Normal Breath Sounds Cardiovascular: Regular Rate, Rhythm Gastrointestinal: Normal Bowel Sounds, Soft Extremity: No Pedal Edema Skin: Normal Color, Warm/Dry Neurologic/Psychiatric: Alert, Normal Mood/Affect EVELIA GANNON MD Apr 14, 2022 22:06
== END 2022-04-14 17:15 | disposition home or self-care (01) ==
LOC: EDUNIT# 11:42 → ER FS 11:44 → 4TH 16:40
PROVIDERS: ADMIT Internal Medicine; ATTEND Family Medicine
DX: I13.0 Hypertensive heart and chronic kidney disease with heart failure and stage 1 through stage 4 chronic kidney disease, or unspecified chronic kidney disease (principal); I50.41 Acute combined systolic (congestive) and diastolic (congestive) heart failure; E78.5 Hyperlipidemia, unspecified; E03.9 Hypothyroidism, unspecified; I27.20 Pulmonary hypertension, unspecified; F31.9 Bipolar disorder, unspecified; N18.31 Chronic kidney disease, stage 3a; I42.0 Dilated cardiomyopathy; M19.90 Unspecified osteoarthritis, unspecified site; M54.9 Dorsalgia, unspecified; Z79.890 Hormone replacement therapy
CPT/HCPCS: 36415; 71046; 71275; 80053 ×6; 83735 ×2; 83880; 84145; 84443; 84484; 85025 ×6; 85379; 86141; 93005 ×2; 93041; 93458; 94640 ×5; 94760 ×5; 94761; 96372 ×5; 96375; 96376 ×2; 99284; C1760; C1894; C8929; G0378; 93306; 96361; 96374; Q9967

== ENCOUNTER → 2022-04-20 | Outpatient (CLI) | payer MEDICARE ==
[~2022-04-20] MED LIST: ACET-2267 PO; CARV6.252 PO; CITA40TA13 PO; DIGO250T15 PO; EMPA10TA PO; FURO20TA4 PO; LEVO75TA6 PO; LOVA10TA PO; MELO15TA39 PO; OLAN10TA71 PO; SPIR25TA5 PO; TRAM50TA3 PO
[2022-04-20 10:12] LABS: POTASSIUM 4.4 MMOL/L (3.6-5.0)
[2022-04-20 10:13] LABS: CALCIUM 9.8 MG/DL (8.5-10.1); CREATININE SERUM 1.36 MG/DL (0.60-1.30); MAGNESIUM 2.4 MG/DL (1.6-2.4)
== END ==
LOC: LAB FS 08:01
PROVIDERS: ATTEND Nurse Practitioner Family
DX: I50.41 Acute combined systolic (congestive) and diastolic (congestive) heart failure (principal)
CPT/HCPCS: 36415; 80048; 80162; 83735

== ENCOUNTER → 2022-06-16 | Outpatient (CLI) | payer MEDICARE | LOC: CARDFS 13:36 | PROVIDERS: ATTEND Nurse Practitioner Family | DX: I08.0 Rheumatic disorders of both mitral and aortic valves (principal); I42.0 Dilated cardiomyopathy | CPT/HCPCS: 93306 ==

== ENCOUNTER → 2022-07-16 | Outpatient (CLI) | payer MEDICARE | LOC: CARDFS 12:43 | PROVIDERS: ATTEND Internal Medicine Cardiovascular Disease | DX: I08.0 Rheumatic disorders of both mitral and aortic valves (principal); I42.0 Dilated cardiomyopathy | CPT/HCPCS: 93306 ==

== ENCOUNTER → 2022-09-21 | Outpatient (CLI) | payer MEDICARE ==
[2022-09-21 11:21] LABS: BASOPHILS # (AUTO) 0.1 10^3/uL (0.0-0.1); BASOPHILS % (AUTO) 1 % (0-10); EOSINOPHILS # (AUTO) 0.4 10^3/uL (0.0-0.3); EOSINOPHILS % (AUTO) 4 % (0-10); HEMATOCRIT 46 % (35-52); HEMOGLOBIN 14.9 g/dL (11.5-16.0); LYMPHOCYTES # (AUTO) 2.5 10^3/uL (1.0-4.0); LYMPHOCYTES % (AUTO) 25 % (12-44); MEAN CORPUSCULAR HEMOGLOBIN 29 pg (25-34); MEAN CORPUSCULAR HGB CONC 32 g/dL (32-36); MEAN CORPUSCULAR VOLUME 89 fL (80-99); MEAN PLATELET VOLUME 10.1 fL (9.0-12.2); MONOCYTES # (AUTO) 0.7 10^3/uL (0.0-1.0); MONOCYTES % (AUTO) 7 % (0-12); NEUTROPHILS # (AUTO) 6.4 10^3/uL (1.8-7.8); NEUTROPHILS % (AUTO) 63 % (42-75); PLATELET COUNT 196 10^3/uL (130-400)
== END ==
LOC: LAB FS 11:01
PROVIDERS: ATTEND Internal Medicine Cardiovascular Disease
DX: I42.0 Dilated cardiomyopathy (principal)
CPT/HCPCS: 36415; 80162; 85025

== ENCOUNTER 2022-09-28 07:43 | Day surgery (SDC) | payer MEDICARE ==
[2022-09-28] VITALS (12 sets, daily range): BP systolic 100–141; BP diastolic 42–75
[~2022-09-28] VITALS: Ht 152.4 cm; Wt 65.1 kg
[2022-09-28] MEDS ORDERED: LIDOCAINE 1% INJ 20 ML VIAL ONE (07:47)
[2022-09-28] MEDS ORDERED: ceFAZolin INJECTION 1,000 MG ONE (07:48)
[2022-09-28] MEDS ORDERED: HEParin (CATH LAB) 1,000 ML IV ONE (07:48)
[2022-09-28] MEDS ORDERED: NS IV 1000 ML 2,000 ML ONE (07:48)
[2022-09-28 08:53] LABS: HEMATOCRIT 49 % (35-52); HEMOGLOBIN 15.9 g/dL (11.5-16.0); MEAN CORPUSCULAR HEMOGLOBIN 29 pg (25-34); MEAN CORPUSCULAR HGB CONC 32 g/dL (32-36); MEAN CORPUSCULAR VOLUME 89 fL (80-99); MEAN PLATELET VOLUME 10.1 fL (9.0-12.2); PLATELET COUNT 254 10^3/uL (130-400); WHITE BLOOD COUNT 8.2 10^3/uL (4.3-11.0)
[2022-09-28] MEDS ORDERED: fentaNYL INJ 100 MCG/2 ML AMP ONE ×2 (09:05→12:21)
[2022-09-28] MEDS ORDERED: MIDAZOLAM 5 MG/5 ML (VERSED) VIAL ONE ×2 (09:05→11:59)
[2022-09-28 09:06] LABS: CREATININE SERUM 1.22 MG/DL (0.60-1.30); POTASSIUM 4.1 MMOL/L (3.6-5.0)
--- NOTE | 2022-09-28 09:07 | Pre-Procedure Progress Note ---
Pre-Procedure Progress Note Date H&P Reviewed: September 28, 2022 Time H&P Reviewed: 09:41 History & Physical: H&P Reviewed, Patient Examed Pre-Procedure Diagnosis: CHF, SCD Risk No changes. No new c/o except feeling anxious. I again reviewed the procedure and the risk procedure with the patient and her daughter who is a nurse. All questions were answered. We will proceed accordingly. Anesthesia is also evaluated the patient. Date of Service:09/04/2022 Amber Vasquez a 72 y.o.female. 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 She is typically followed and was referred by my colleague Dr. Montgomery, her primary gear lapper. Ms. Avitia is an exceptionally pleasant 72 y.o. female. All data in this note, including the past medical history, was newly collected today. Her PMHx briefly includes:Congestive Heart Failure (Last LVEF by Echo 15-20%, 07/16/2022) ; Nonischemic Cardiomyopathy; Pulmonary Hypertension; Hyperlipidemia; Chronic Kidney Disease; Hypothyroidism; Chronic Arthritis; Depression; Probable NORM; NOTE: Unable to tolerate CHAGO- Inhibitors and ARB due to low blood pressure. DETAILED UPDATED PMHx: -- 04/09/2022 - ECHO: ([facility]) LV cavity size is mildly increased. There is mild concentric LVH. LV systolic function is moderately to severely reduced. EF ~ 25-30%. Moderate diffuse hypokinesis. Doppler parameters are consistent with a reversible restrictive pattern, indicative of decreased LV diastolic compliance and/or increased LAP (grade 3 di astolic dysfunction). LA is mildly dilated.RA is mildly dilated. Moderate to severe MVR. There is a small right pleural effusion. PASP is in the range of 50-55mmHg. -- 04/09/2022 - CCTA: Findings are most suggestive of congestive heart failure with plural fluid, greater on the right. There is no evidence of PE. Or other acute abnormalities. -- 04/12/2022 - Cardiac Catheterization: ([facility]) No significant CAD. RCA dominant. LVEF = 20%.Global hypokinesis. LVEDP is 22mmHg. MR is difficult to determine on this study. -- 06/16/2022 - ECHO: ([facility]) LV cavity is increased. There is moderate concentric LCH. LV systolic function is mode rately to severely reduced. EF ~ 30-35%.There were no regional wall motion abnormalities identified. Doppler parameters are consistent with abnormal LV relaxation (grade 1 diastolic dysfunction). LA is mildly dilated.Moderate MVR. Mild AV stenosis, trivial AVR. -- 07/16/2022 - ECHO: ([facility]) LV cavity is normal. LV wall thickness is mildly increased. There is severe concentric LVH. LV systolic function is severely reduced. EF ~ 15-20%. Severe diffuse hypokinesis. Doppler parameters are consistent with abnormal LV relaxation (grade I diastolic dysfunction). Mild to moderate MVR. Trivial AVR --08/03/2022: OV (Dr. Montgomery): We advise TUBE BENDING MACHINE OPERATOR-D implant due to EF. Refusing Life Vest due to cost.Refer to EP. Her HPI for today is discussed in greater detail as a part of the Assessment and Plan below. FHx, SHx and ROS documented and I have reviewed. Most pertinent ROS is inclu ded/discussed throughout the note, e.g. HPI and A/P. ASSESSMENT AND PLAN: -- GI Sxs -- Congestive Heart Failure (Last LVEF by Echo 15-20%, 07/16/2022)-NYHA Class3 -- Nonischemic Cardiomyopathy -- LBBB-QRS duration consistently greater than 120 ms -- Pulmonary Hypertension -- Hyperlipidemia -- Chronic Kidney Disease -- Hypothyroidism -- Chronic Arthritis -- Depression -- Probable NORM Ms. Avitia has a history of nonischemic cardiomyopathy with [id number] and a LBBB with a QRS duration greater than 120 ms. Therefore she was referred for of CRTD device implantation. In fact she states she gets short of breath trying to do anything, tiring easily, at times it is worse than others. She also has some GI issues. We will check a digoxin level. I discussed with the patient at length the procedure of biventricular ICD implantation or Cardiac Resynchronization Therapy-Defibrillator (TUBE BENDING MACHINE OPERATOR-D). Despite her Guideline DirectedMedical Tx beingoptimized, as best her BP will tolerate HerLVEF has yet to improve above 35%. Thus, We discussed her risk of sudden cardiac given herModerate-SevereLV Dysfunction, and [id number]. We had a lengthy discussion regarding the benefit of ICDs in the prevention of Sudden Cardiac in patients at risk such as her. We discussed the indications and purpose of ICD therapy. We discussed that defibrillators prevent someone from dying from a cardiac arrest but do not necessarily prevent a cardiac arrest. We discussed that with a CRTD device, All patients receive the benefit of prevention from sudden cardiac . I reviewed an evidence-based tool (EBT) with the patient prior to ICD implantation for primary prevention to ensure that the patients health goals and preferences were covered. A copy of the EBT can be accessed thru [facility] [employer] system under 'Implantable Cardioverter-Defibrillator (ICD) Shared Decision- Making Tool'. We also discussed CHF and cardiac dyssynchrony and its mechanism. We discussed the rational and potential benefit of cardiac resynchronization Tx for CHF and LBBB, etc. We discussed that approximately 70% of pts. Tx'd with TUBE BENDING MACHINE OPERATOR devices respond with significant clinical improvement and possible EF improvement. The risks, benefits, and alternatives to the procedure were reviewed with the patient and any family present. We discussed the risks to include but not be limited to: , MS, stroke, cardiac perforation, vessel damage, pneumothorax, infection, and bleeding. We reviewed that we will utilize IV contrast dye in order to view and determine optimal LV lead position within the coronary sinus. LV lead implantation was discussed at length including the approximately 5% risk of unsuccessful endocardial LV lead placement. In these cases, the patient would likely be referred for epicardial LV lead implantation. Post device care and limitations were also reviewed with the patient. After we discussed the procedure and risks of the procedure at length, all questions were answered. The patient all expressed an understanding of the procedure and risks and wish to proceed with TUBE BENDING MACHINE OPERATOR-D implantation. NO DFT Testing needed. Anesthesia evaluation given relative hypotension i.e. possible issue with sedation during the procedure which can be up to 2+ hours. Of note her creatinine was 1.26 in May. Repeat labs should occur prior to the procedure. PLAN: --Proceed with CRTD device implantation --Pre-Procedure Anesthesia eval as noted --No DFT testing --Dr. Montgomery to check a digoxin level if not checked recently. --CBC and CHEM panel within 1 week of procedure Total Time Today [id number] in the following activities: Preparing to see the patient, Obtaining and/or reviewing separately obtained history, Performing a medically appropriate examination and/or evaluation, Counseling and educating the patient/family/caregiver, Ordering medications, tests, or procedures, Referring and communication with other health rn medicare (when not separately reported) and Documenting clinical information in the electronic or other health record Ms. Avitia was educated regarding plan of care. She was instructed to call our office with any questions or concerns, as well as to notify us of any new or worsening symptoms. She verbalized understanding. I appreciate the opportunity to participate in the care of your patient. Please do not hesitate to contact me directly if you have any questions or further insights into her care. Vitals: 09/04/22 1351 BP: 106/60 Pulse: 83 Temp: 36.6 C (97.8 F) Weight: 68.3 kg (150 lb 9.6 oz) Height: 152.4 cm (5') Body mass index is 29.41 kg/m. Past Medical History Patient Active Problem List Diagnosis Date Noted LBBB (left bundle branch block) 09/04/2022 CHF (congestive heart failure) (HCC) 09/01/2022 Per OV note on 08/03/[address] Bruno Montgomery ([facility]) Nonischemic cardiomyopathy (HCC) 09/01/2022 Per OV note on 08/03/[address] Bruno Montgomery ([facility]) 04/09/2022 - ECHO: ([facility]) LV cavity size is mildly increased. There is mild concentric LVH. LV systolic function is moderately to severely reduced. EF ~ 25-30%. Moderate diffuse hypokinesis. Doppler parameters are consistent with a reversible restrictive pattern, in dicative of decreased LV diastolic compliance and/or increased LAP (grade 3 diastolic dysfunction). LA is mildly dilated. RA is mildly dilated. Moderate to severe MVR. There is a small right pleural effusion. PASP is in the range of 50-55mmHg. 04/12/2022 - Cardiac Catheterization: ([facility]) No significant CAD. RCA dominant. LVEF = 20%. Global hypokinesis. LVEDP is 22mmHg. MR is difficult to determine on this study. 06/16/2022 - ECHO: ([facility]) LV cavity is increased. There is moderate concentric LCH. LV systolic function is moderately to severely reduced. EF ~ 30-35%. There were no regional wall motion abnormalities identified. Doppler parameters are consistent with abno rmal LV relaxation (grade 1 diastolic dysfunction). LA is mildly dilated. Moderate MVR. Mild AV stenosis, trivial AVR. 07/16/2022 - ECHO: ([facility]) LV cavity is normal. LV wall thickness is mildly increased. There is severe concentric LVH. LV systolic function is severely reduced. EF ~ 15-20%. Severe diffuse hypokinesis. Doppler parameters are consistent with abnormal LV relaxation (grade I diastolic dysfunction). Mild to moderate MVR. Trivial AVR. Pulmonary hypertension (HCC) 09/01/2022 Per OV note on 08/03/[address] Bruno Montgomery ([facility]) HLD (hyperlipidemia) 09/01/2022 Per OV note on 08/03/[address] Bruno Montgomery ([facility]) Hypothyroid 09/01/2022 Per OV note on 08/03/[address] Bruno Montgomery ([facility]) History of depression 09/01/2022 Per OV note on 08/03/[address] Bruno Montgomery ([facility]) Chronic arthritis 09/01/2022 Per OV note on 08/03/[address] Bruno Montgomery ([facility]) CKD (chronic kidney disease) 09/01/2022 Per OV note on 08/03/[address] Bruno Montgomery ([facility]) Review of Systems All other systems reviewed and are negative. Physical Exam Constitutional:Sheis in no acute distress, resting comfortably. Skin/Integument:Warm and dry. Eyes: PERRL, sclera are non-icteric and no xanthelasmas noted. ENT: Hearing is intact. Heme/Lym/Immun:Supple neck, without thyromegaly. Respiratory-Pulmonary/Chest:Effort normal and breath sounds normal. No respiratory distress or accessory muscle use. No obvious tracheal deviation. Clear to auscultation bilaterally. Cardiovascular:No evidence of increased jugular venous pressure, carotids are 1-2+/4+ equal bilaterally. Regular rhythm, S1, S2. I do not appreciate any significant murmur today. No heaves, thrills or rubs. Musc/Skeletal-Extremities:Without significant peripheral edema. With what appears to be full ROM. Neuro:Patient is alert and oriented to person, place, and time. Psych: Patient does not appear anxious, sheappears appropriate, with normal non-pressured speech and what appears to be appropriate judgement Cardiovascular Studies ECG today documents NSR at 73 bpm with IVCD/left bundle branch block with a QRS duration 120 MS. Cardiovascular Health Factors Vitals BP Readings from Last 3 Encounters: 09/04/22 106/60 Wt Readings from Last 3 Encounters: 09/04/22 68.3 kg (150 lb 9.6 oz) BMI Readings from Last 3 Encounters: 09/04/22 29.41 kg/m Smoking Social History Tobacco Use Smoking Status Former Types: Cigarettes Smokeless Tobacco Never Lipid Profile No results found for: CHOL No results found for: HDL No results found for: LDL No results found for: TRIG Blood Sugar No results found for: HGBA1C No results found for: GLU, GLUF, GLUPOC Problems Addressed Today Encounter Diagnoses Name Primary? Nausea Yes Chronic systolic congestive heart failure (HCC) Nonischemic cardiomyopathy (HCC) Pulmonary hypertension (HCC) LBBB (left bundle branch block) Mixed hyperlipidemia Current Medications (including today's revisions) acetaminophen (TYLENOL EXTRA STRENGTH) 500 mg tablet Take two tablets by mouth every 6 hours as needed for Pain. Max of 4,000 mg of acetaminophen in 24 hours. carvediloL (COREG) 12.5 mg tablet Take one tablet by mouth twice daily with meals. Take with food. citalopram (CELEXA) 40 mg tablet Take one tablet by mouth daily. digoxin (LANOXIN) 250 mcg (0.25 mg) tablet Take one-half tablet by mouth daily. empagliflozin (JARDIANCE) 10 mg tablet Take one tablet by mouth daily. furosemide (LASIX) 20 mg tablet Take one tablet by mouth every morning. levothyroxine (SYNTHROID) 75 mcg tablet Take one tablet by mouth daily 30 minutes before breakfast. lovastatin (MEVACOR) 10 mg tablet Take one tablet by mouth daily with dinner. OLANZapine (ZYPREXA) 10 mg tablet Take one-half tablet by mouth at bedtime daily. spironolactone (ALDACTONE) 25 mg tablet Take one tablet by mouth daily. Take with food. traMADoL (ULTRAM) 50 mg tablet Take one tablet by mouth every 8 hours as needed for Pain. JENNA HOOD MD September 28, 2022 09:07
[2022-09-28] MEDS ORDERED: ASPI-1238 PO (09:23)
[2022-09-28] MEDS ORDERED: SPIR25TA5 PO (09:23)
[2022-09-28] MEDS ORDERED: FURO20TA4 PO (09:24)
[2022-09-28] MEDS ORDERED: EMPA10TA PO (09:24)
[2022-09-28] MEDS ORDERED: CARV12.53 PO (09:24)
[2022-09-28] MEDS ORDERED: DIGO250T15 PO (09:25)
[2022-09-28] MEDS ORDERED: MELA10TA2 PO (09:27)
--- NOTE | 2022-09-28 09:45 | Pre-Op Note & Conscious Sedat ---
Pre-Operative Progress Note Date H&P Reviewed: September 28, 2022 Time H&P Reviewed: 09:44 History & Physical: H&P Reviewed, Patient Examed, No changes noted Changes from last HP See other preop H&P update. Pre-Op Diagnosis: chf Moderate Sedation PreProcedure Time 09:41 ASA Score 3 Airway Lungs Heart ASA score ASA 1: a normal healthy patient ASA 2: a patient with a mild systemic disease (mid diabetes, controlled hypertension, obesity ASA 3: a patient with a severe systemic disease that limits activity (angina, COPD, prior Myocardial infarction) ASA 4: a patient with an incapacitating disease that is a constant threat to life (CHF, renal failure) ASA 5: a moribund patient not expected to survive 24 hrs. (ruptured aneurysm) ASA 6: a declared brain- patient whose organs are being harvested. For emergent operations, add the letter E after the classification Mallampati Classification Grade 3 Sedation Plan Analgesia, Amnesia, Plan communicated to team members, Discussed options with patient/fam, Discussed risks with patient/fam The patient is an appropriate candidate to undergo the planned procedure, sedation, and anesthesia. Anesthesia team has evaluated the patient and is on backup. The patient immediately re-assessed prior to indication. JENNA HOOD MD September 28, 2022 09:45
--- NOTE | 2022-09-28 13:22 | ICD Implantation ---
ICD-PPM ELECTROPHYSIOLOGY PROCEDURE PROCEDURE: Biventricular Defibrillator Implantation OPERATION PERFORMED: -Left Axillary venous access x 3 -Biventricular Defibrillator Implantation -Defibrillation Threshold Testing not performed -Left Upper Extremity Venogram with Interpretation ATTENDING SURGEON: Soto Hood MD COMPLICATIONS: None. TIME OUT: Time out was completed with verification of the correct patient identity, procedure to be performed, procedure site and implanted equipment. INDICATION: Primary prevention of sudden cardiac , CHF with significant left bundle branch block and nonischemic cardiomyopathy PROCEDURE AND FINDINGS: Informed consent was given prior to the procedure and confirmed. Intravenous prophylactic antibiotics were administered prior to the procedure. After the site of implantation was prepped and drapped in the usual sterile fashion and after adequate anesthesia was given, the skin was infiltrated with local anesthetic. With fluoroscopic guidance identified the best location for the incision in the deltopectoral groove. The skin was incised on the left chest with a #10 scalpel. Blunt and electrosurgical dissection was carried out to the level of the prepectoral fascia with careful attention paid to hemostasis. A pocket to house the pulse generator was formed between the prepectoral fascia and subcutaneous fat with blunt and electrosurgical dissection. ACCESS Once adequate hemostasis was confirmed within the pocket, venous access was obtained. After multiple times attempting to access the axillary vein and on 1 occasion with a micropuncture needle accessing the axillary artery holding hemostasis I performed a left upper extremity venogram. Left upper extremity Venogram Interpretation demonstrated a somewhat low and very thin almost spasmodic axillary and subclavian vein. The venogram was obtained before you are ready for access. Demonstrated patency of the vessel and details described above. 1 pass successfully cannulated the axillary vein but with difficulty finding the exact location. Unfortunately the next 2 were unsuccessful at cannulating the vein therefore a repeat venogram was obtained and then was successfully cannulated without difficulty the axillary vein. Therefore all 3 access is remained extrathoracic. 10-15mls Omnipaque was administered through the ipsilateral IV. The course of the basilic, axillary and subclavian was noted. The caliber of the onel was normal. The onel was patent. The axillary vein was accessed via modified Seldinger technique under under fluoroscopic and venogram guidance. Three separate accesses were obtained with this technique. J tip 0.035 inch guide wire/wires were introduced and their course throught the venous system was confirmed by their presence under fluoroscopy in the inferior vena cava. RIGHT VENTRICULAR LEAD A peel away sheath was brought to the field and placed into the venous system via over the wire technique. The right ventricular lead was placed via this sheath into the right ventricularmid-low septal location. Adequate sensing and threshold parameters were obtained . The lead was attached via active fixation. There was no evidence of diaphragmatic stimulation at 10 V output. CS LV LEAD The coronary sinus was cannulated using the guide sheath an 0.035 Kingsley wire thru the guide. The Glidewire subselected the lateral vein. We position the sheath up to the os of the lateral vein. Therefore I did not perform a CS venogram. A Ge.tt extended hook guide was inserted over a Glidewire through a 9 Fr short sheath into the venous system. The CS was cannulatedWithout difficultyusing a glide-wire through the guide. The CS guide was advanced into the coronary sinus. Over the wire, using a runthrough wire the LV lead was advanced into the Lateral branch of the CS. No diaphragmatic stimulation was noted. The lead tested well. It was an active fix lead. We rotated the lead to get that active-fixation and confirmed by tension that it was intact. Adequate pacing thresholds were obtained in this location without extracardiac stimulation. There was no evidence of diaphragmatic stimulation at 10 V output on any of the quad poles. ATRIAL LEAD A peel away sheath was brought to the field and placed into the venous system via over the wire technique. The right atrial lead was placed via this sheath into the right atrial appendage location. The lead had to be repositioned 3 times due to Far field R wave oversensing. Adequate sensing and threshold parameters were obtained at the final location. The lead was attached via active fixation. There was no evidence of diaphragmatic stimulation at 10 V output. TESTING OF THE LEADS: RA Pacing Threshold at 0.5 V was 0.4 ms P wave sensing was 3.8 mV and pacing lead impedance was 722 ohms. ICD Pacing Threshold at 0.5 ms was 0.4 ms; Rwave sensing is 16.8 mV; RV ICD lead impedance was pacing lead impedance was 551 ohms LV Pacing Threshold configured LV 2 to LV 1 was 1.0 V at 0.6 ms with a pacing lead impedance of 855 ohms. For both the RA and RV leads, the peel away sheaths were removed and the lead collars were advanced to the pectoral muscle and sutured with 0-0 Ethibond s uture. Tug testing of this lead confirmed stability of the lead and the length of the lead's slack was assesed as optimal with fluoroscopy. Attention was turned back to the CS/LV lead and guide sheath. While monitoring the lead under fluoroscopy to ensure no dislodgement of the lead itself, The guide and peel-away sheath were removed. The lead did not dislodge. The lead collar was advanced to the pectoral muscle and sutured with 0-0 Ethibond suture. The length of the lead's slack was assesed as optimal with fluoroscopy. Next, the leads were cleaned and dried thoroughly then attached to the appropriate ports on the pulse generator. Tug testing was perfomed on all connections. The pocket was copiously irrigated with normal saline and subsequently observed. Once adequate hemostasis was confirmed within the pocket, the device and leads were placed within a TYRX pouch then in the pocket such that the coiled redundant leads were underneath the pulse generator. Due to lack of excess lead in the pocket the generator had to be positioned in the pocket header-side up. Once again, the device was tested for adequate sensing, impedances and pacing thresholds. The generator was secured to the pectoralis muscle fascia with 0-0 Ethibond. This was a primary prevention device implantation DFTs were not performed. The pocket was closed with 3 running layers of absorbable suute. Steri-Strips were and sterile dressing were applied over the incision. She tolerated the procedure well. SEDATION: I was personally responsible for the administration of moderate sedation services during the procedure performed and I confirm requirements described in CPT section on moderate sedation were followed, including the use of an independent trained observer who had no other duties during the procedure.After providing fentanyl and midazolam, we achieved moderate conscious sedation, which was maintained throughout the procedure.The hemodynamic parameters, respiratory parameters, as well as neurological status was monitored throughout the procedure by the culture media laboratory assistant staff and myself. CONCLUSION: Successful Biventricular Defibrillator Implantation RECOMMENDATIONS: -Please do not give any heparin products for at least 72 hours s/p device implantation. -PA/Lateral CXR in the morning to confirm lead placement and rule-out pneumothorax -12 lead ECG to confirm pacing morphology (with magnet if not pacing) -ANTIBIOTICS: No post-procedure antibiotics -Incision Check in one week DEVICE SYSTEM INFORMATIONMEDeZWay: Ge.tt CRTD [place] XT Generator serial number RTC [id number] 09/28/2022 Medtronic RA Lead #[id number]; serial number PJ [id number] 09/28/2022 Medtronic ICD Lead number [id number]; serial number TDL [id number] implanted 09/28/2022 Medtronic LV Lead #4798Attain Stability; serial number Q fracture [id number] 09/28/2022 RECOMMENDATIONS: -Please do not give any heparin products for at least 72 hours s/p device implantation. -PA/Lateral CXR in the morning to confirm lead placement and rule-out pneumothorax -12 lead ECG to confirm pacing morphology (with magnet if not pacing) -ANTIBIOTICS: No post-procedure antibiotics -Incision Check in one week [ ]. SOTO HOOD MD September 28, 2022 13:22
[2022-09-28] MEDS: NS IV 1000 ML 1,000 ML IV SCH (14:45)
[2022-09-28] MEDS ORDERED: ACETAMINOPHEN 500 MG TAB (TYLENOL) PO PRN (15:45)
[2022-09-28] MEDS ORDERED: MELATONIN 10 MG TABLET PO PRN (15:45)
[2022-09-28] MEDS ORDERED: PATIENT MAY USE OWN MEDS, ALL MC SCH (15:45)
--- NOTE | 2022-09-28 16:41 | Diagnostic Imaging Report ---
Indication: Defibrillator placement. Time of Exam: 1:50 PM Comparison is made with prior chest from 04/09/2022. Heart size is stable. Cardiac defibrillator has been placed. Lungs are clear. There is no pneumothorax. There is no effusion. IMPRESSION: Defibrillator placement. No complicating features are identified. Dictated by: Dictated on workstation # [id number]
--- NOTE | 2022-09-28 16:42 | Cardiology Progress Note ---
Progress Note-Cardiology Events since last exam Date Seen by Provider: September 28, 2022 Time Seen by Provider: 16:39 Events since last exam Ms. Avitia underwent CRTD device implantation today. Multiple passes to her axillary vein were made in the future subclavian vein for the axillary vein was ultimately accessed successfully on 3 separate occasions for her CRTD device. Based on that I obtained a PA and lateral chest x-ray. I did not have a high suspicion for pneumothorax but I wanted to ensure since I was not going to be available after clinic today in the event that there were an issue. Single view chest x-ray obtained. Leads appear to be in stable position from implant. She has some increased interstitial markings. She has no evidence of pneumothorax. She may require some diuresis tomorrow. Repeat chest x-ray will be done tomorrow in part to look for lead placement/positioning/ensure no leads of dislodged I will review that x-ray. I anticipate discharge home tomorrow with a 1 week incision check and follow-up with Dr. Montgomery in 1 month and/or 3 months. I will see her for any reprogramming or any programming issues and follow-up per his discretion. Vitals Last set of Vitals Signs Vital Signs 09/28/22 16:14 Temp 36.6 Pulse 66 Resp 17 B/P (MAP) 108/47 (67) Pulse Ox 96 O2 Delivery Room Air Labs Labs Laboratory Tests 09/28/22 08:40 Exam Vital Signs Vital Signs Date Time Temp Pulse Resp B/P (MAP) Pulse Ox O2 Delivery O2 Flow Rate FiO2 09/28/22 16:14 36.6 66 17 108/47 (67) 96 Room Air Labs Laboratory Tests Test 09/28/22 08:40 Range/Units White Blood Count 8.2 4.3-11.0 10^3/uL Red Blood Count 5.50 H 3.80-5.11 10^6/uL Hemoglobin 15.9 11.5-16.0 g/dL Hematocrit 49 35-52 % Mean Corpuscular Volume 89 80-99 fL Mean Corpuscular Hemoglobin 29 25-34 pg Mean Corpuscular Hemoglobin Concent 32 32-36 g/dL Red Cell Distribution Width 13.5 10.0-14.5 % Platelet Count 254 130-400 10^3/uL Mean Platelet Volume 10.1 9.0-12.2 fL Sodium Level 139 135-145 MMOL/L Potassium Level 4.1 3.6-5.0 MMOL/L Chloride Level 103 98-107 MMOL/L Carbon Dioxide Level 25 21-32 MMOL/L Anion Gap 11 5-14 MMOL/L Blood Urea Nitrogen 14 7-18 MG/DL Creatinine 1.22 0.60-1.30 MG/DL Estimat Glomerular Filtration Rate 47 BUN/Creatinine Ratio 11 Glucose Level 118 H 70-105 MG/DL Calcium Level 10.0 8.5-10.1 MG/DL JENNA HOOD MD September 28, 2022 16:42
[2022-09-28] MEDS: APAP 300 MG/CODEINE 30 MG (TYLENOL #3) TAB PO PRN ×2 (16:44→21:28)
[2022-09-28] MEDS ORDERED: AtorvaSTATin TABLET 10 MG TABLET PO SCH (21:00)
[2022-09-28] MEDS ORDERED: OLANZapine 2.5 MG (ZyPREXA) TAB PO SCH (21:00)
[2022-09-28] MEDS ORDERED: NON-FORMULARY MEDICATION 1 EA EA (Lovastatin 10 MG) PO SCH (21:00)
[2022-09-29] VITALS: BP 107/54
[2022-09-29 01:00] VITALS: BP 108/55
[2022-09-29 02:00] VITALS: BP 99/54
[2022-09-29] MEDS: NS IV 1000 ML 1,000 ML IV SCH (02:57)
[2022-09-29 04:00] VITALS: BP 105/41
--- NOTE | 2022-09-29 07:48 | Progress Note - Cardiology ---
Cardiology SOAP Progress Note Subjective: Sitting up in bed No c/o CP, SOB, palpitations No c/o discomfort at device insertion site Objective: I&O/Vital Signs 09/28/22 09/28/22 09/28/22 09/28/22 21:00 22:00 22:00 23:00 Pulse 87 86 87 Resp B/P (MAP) 120/64 (89) 113/58 (76) 109/52 (71) Pulse Ox 95 94 92 O2 Delivery Room Air Room Air Room Air Room Air 09/29/22 09/29/22 09/29/22 09/29/22 00:00 01:00 01:00 02:00 Temp 35.8 Pulse 82 80 80 76 Resp 21 19 16 B/P (MAP) 107/54 (69) 108/55 (71) 99/54 (65) Pulse Ox 94 92 93 O2 Delivery Room Air Room Air Room Air 09/29/22 09/29/22 09/29/22 04:00 07:17 08:04 Temp 36.1 36.7 Pulse 78 65 86 Resp B/P (MAP) 105/41 (63) 136/71 (92) Pulse Ox 93 96 O2 Delivery Room Air Room Air 09/29/22 00:00 Intake Total 500 ml Balance 500 ml Side: left Device Insertion Site: without hematoma Swelling: without swelling Bruising: mild bruising Constitutional: AAO x 3, well-developed, well-nourished Respiratory: No accessory muscle use, No respiratory distress; chest expansion is symmetric, chest is bilaterally symmetric, lungs clear to auscultation Cardiovascular: regular rate-rhythm; No JVD; S1 and S2 Gastrointestional: No tender; soft; No guarding; audible bowel sounds Extremities: no lower extremity edema bilateral Neurologic/Psychiatric: grossly intact (moves all extremities) Skin: No rash on exposed areas, No ulcerations on exposed areas Results/Procedures: Procedures NAME: [facility] REC#: [id number] PT STATUS: [facility] : 1950 PHYSICIAN: JENNA VALE MD ADMIT DATE: 09/28/22/[facility] Draft Date of Exam:09/28/22 CHEST 1 VIEW, AP/PA ONLY Indication: Defibrillator placement. Time of Exam: 1:50 PM Comparison is made with prior chest from 04/09/2022. Heart size is stable. Cardiac defibrillator has been placed. Lungs are clear. There is no pneumothorax. There is no effusion. IMPRESSION: Defibrillator placement. No complicating features are identified. Dictated on workstation # [id number] Dict: 09/28/22 1543 Trans: 09/28/22 1641 [facility] [id number] Interpreted by: RAHUL MATSON MD Electronically signed by: A/P: Assessment: 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 LVEF 25-30%. Mod diffuse hypokinesis. Grade 3 diastolic dysfunction. LA and RA are mildly dilated. Mod to severe MR. Small right pleural effusion. PASP 50-55 mmHg - Card cath on 04-12-22: no significant CAD, RCA dominant, LVEF 20%, global hypokinesis, LVEDP 22 mmHg, MR difficult to determine on this study - Echocardiogram of 06-16-22 showed mod concentric hypertrophy. LVEF 30-35%. Grade 1 diastolic dysfunction. LA mild dilated. Mod MR. Mild aortic stenosis with trivial regurg - Echocardiogram of 07-16-22 showed severe concentric hypertrophy. LVEF 15-20%. Grade 1 diastolic dysfunction. Mild to mod MR. Trivial AoR. - S/P CRTD device implantation by Dr. Vale on 09-28-22 Pulmonary HTN - probably due to L heart failure HLD - statin tx Mild hypothyroidism - managed by PCP H/o depression Chronic arthritis and back pain CKD 2-3 - probably with an acute component of prerenal azotemia due to diuretic therapy Unable to tolerate CHAGO-inhib / ARB due to low bp Suspected sleep apnea - not agreeable to sleep studies Plan: S/P LUNCH WAGON OPERATOR-D implant by Dr. Vale on 09-28-22 Awaiting CXR results from this morning Awaiting Medtronic interrogation (Sabas) Likely d/c home today with out pt f/u Continue current home medication regimen ASA JUAREZ September 29, 2022 07:48
[2022-09-29 08:04] VITALS: BP 136/71
[2022-09-29] MEDS ORDERED: DIGOXIN 0.125 MG (LANOXIN) TAB PO SCH (09:00)
[2022-09-29] MEDS ORDERED: EMPAGLIFLOZIN 10 MG TABLET (JARDIANCE) PO SCH (09:00)
[2022-09-29] MEDS ORDERED: ASPIRIN E.C. 81 MG (ECOTRIN) TAB PO SCH (09:00)
[2022-09-29] MEDS ORDERED: FUROSEMIDE 20 MG (LASIX) TAB PO SCH (09:00)
[2022-09-29] MEDS ORDERED: LEVOTHYROXINE 75 MCG (LEVOTHROID) TABLET PO SCH (09:00)
[2022-09-29] MEDS ORDERED: SPIRONOLACTONE 25 MG (ALDACTONE) TAB PO SCH (09:00)
--- NOTE | 2022-09-29 09:24 | Diagnostic Imaging Report ---
INDICATION: Pacemaker placement PA and lateral chest obtained at 0823 a.m. and compared to 09/28/2022. Heart is borderline in size. Multilead pacemaker device is unchanged. There is no pneumothorax or pleural fluid or focal infiltrate. IMPRESSION: Unchanged pacemaker device with no pneumothorax or pleural fluid or focal infiltrate. Dictated by: Dictated on workstation # [id number]
[2022-09-29] MEDS: APAP 300 MG/CODEINE 30 MG (TYLENOL #3) TAB PO PRN (11:18)
[2022-09-29 12:55] VITALS: BP 96/62
--- NOTE | 2022-09-29 14:40 | Progress Note - Cardiology ---
Cardiology SOAP Progress Note Subjective: Some soreness at the site of device implantation No other chest discomfort No shortness of breath No palp or syncope No swelling Wishes to go home Objective: I&O/Vital Signs 09/29/22 09/29/22 09/29/22 09/29/22 04:00 07:17 08:04 12:55 Temp 36.1 36.7 36.5 Pulse 78 65 86 71 Resp 19 22 18 B/P (MAP) 105/41 (63) 136/71 (92) 96/62 (73) Pulse Ox 93 96 97 O2 Delivery Room Air Room Air Room Air 09/29/22 00:00 Intake Total 500 ml Balance 500 ml Side: left Device Insertion Site: without hematoma Swelling: without swelling Bruising: mild bruising Constitutional: AAO x 3, well-developed, well-nourished Respiratory: No accessory muscle use, No respiratory distress; chest expansion is symmetric, chest is bilaterally symmetric, lungs clear to auscultation Cardiovascular: regular rate-rhythm; No JVD; S1 and S2 Gastrointestional: No tender; soft; No guarding; audible bowel sounds Extremities: no lower extremity edema bilateral Neurologic/Psychiatric: other (moves all extremities) Skin: No rash on exposed areas, No ulcerations on exposed areas Results/Procedures: Labs Microbiology 09/28/22 MRSA Screen - Final, Complete No growth Laboratory Tests 09/28/22 08:40 A/P: Assessment: 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 LVEF 25-30%. Mod diffuse hypokinesis. Grade 3 diastolic dysfunction. LA and RA are mildly dilated. Mod to severe MR. Small right pleural effusion. PASP 50-55 mmHg - Card cath on 04-12-22: no significant CAD, RCA dominant, LVEF 20%, global hypokinesis, LVEDP 22 mmHg, MR difficult to determine on this study - Echocardiogram of 06-16-22 showed mod concentric hypertrophy. LVEF 30-35%. Grade 1 diastolic dysfunction. LA mild dilated. Mod MR. Mild aortic stenosis with trivial regurg - Echocardiogram of 07-16-22 showed severe concentric hypertrophy. LVEF 15-20%. Grade 1 diastolic dysfunction. Mild to mod MR. Trivial AoR. - S/P CRTD device implantation by Dr. Vale on 09-28-22 Pulmonary HTN - probably due to L heart failure HLD - statin tx Mild hypothyroidism - managed by PCP H/o depression Chronic arthritis and back pain CKD 2-3 - probably with an acute component of prerenal azotemia due to diuretic therapy Unable to tolerate CHAGO-inhib / ARB due to low bp Suspected sleep apnea - not agreeable to sleep studies Plan: S/P HEAD PUMPER-D implant by Dr. Vale on 09-28-22 Device interrogation showed normally functioning device I discussed her case with Dr Vale yesterday post procedure Continue current home medication regimen ARACELI PRICE MD FACP FAC CCDS September 29, 2022 14:40
[2022-09-30] MEDS ORDERED: LEVOTHYROXINE 75 MCG (LEVOTHROID) TABLET PO SCH (06:30)
== END 2022-09-29 13:40 | disposition home or self-care (01) ==
LOC: CATH 07:43 → CSD 13:44 → CATH 09-29 13:40
PROVIDERS: ATTEND Internal Medicine Cardiovascular Disease
DX: I50.42 Chronic combined systolic (congestive) and diastolic (congestive) heart failure (principal); I44.7 Left bundle-branch block, unspecified; I42.8 Other cardiomyopathies; I42.0 Dilated cardiomyopathy; I27.20 Pulmonary hypertension, unspecified; E03.9 Hypothyroidism, unspecified; F32.A Depression, unspecified; E78.2 Mixed hyperlipidemia; N18.30 Chronic kidney disease, stage 3 unspecified; M19.90 Unspecified osteoarthritis, unspecified site; Z87.891 Personal history of nicotine dependence
CPT/HCPCS: 33225; 33249; 71045; 71046; 75820; 80048; 85027; 87081; 93005; C1769 ×2; C1777; C1882; C1898; 36415